=== PATIENT | female | born 1985 | race Caucasian/White ===

== ENCOUNTER → 2020-09-12 12:50 | Outpatient (BNVA) | payer OTHER, SELFPAY | PROVIDERS: PCP Nurse Practitioner Family; Visit Provider Physician Assistant | DX: K58.1 Irritable bowel syndrome with constipation (principal) | CPT/HCPCS: 99213 ==

== ENCOUNTER 2020-09-13 11:11 | Outpatient (REF) | payer OTHER, SELFPAY ==
[2020-09-13 14:24] LABS: Cholesterol 215 mg/dL; HDL Cholesterol 40 mg/dL; LDL Cholesterol Calculated 121 mg/dl; Triglycerides 272 mg/dL
== END 2020-09-13 11:12 | disposition home or self-care (01) ==
LOC: HO.HMGCLDS 11:11
PROVIDERS: PCP Nurse Practitioner Family; Visit Provider Nurse Practitioner Family
DX: E78.5 Hyperlipidemia, unspecified (principal)
CPT/HCPCS: 80061

== ENCOUNTER 2020-10-04 10:19 | Outpatient (REF) | payer OTHER, SELFPAY ==
[2020-10-04 11:41] LABS: HCG Quantitative 531 mIU/mL
[2020-10-04 11:47] LABS: Cholesterol 198 mg/dL; HDL Cholesterol 45 mg/dL; LDL Cholesterol Calculated 130 mg/dl; Triglycerides 115 mg/dL
== END 2020-10-04 10:20 | disposition home or self-care (01) ==
LOC: HO.HMGCLDS 10:19
PROVIDERS: PCP Nurse Practitioner Family; Visit Provider Nurse Practitioner Family
DX: E78.5 Hyperlipidemia, unspecified (principal); N92.6 Irregular menstruation, unspecified
CPT/HCPCS: 80061; 84702

== ENCOUNTER → 2020-10-10 07:44 | Outpatient (BNVA) | payer OTHER, SELFPAY | PROVIDERS: PCP Nurse Practitioner Family; Visit Provider Physician Assistant | DX: Z76.89 Persons encountering health services in other specified circumstances (principal) ==

== ENCOUNTER 2025-03-16 12:55 | Outpatient (REF) | payer BC, SELFPAY ==
--- NOTE | ~2025-03-16 | US_ITS ---
Procedure: Endovascular ablation of the right greater saphenous vein with VenaSeal HISTORY: Varicose veins INDICATIONS: Symptomatically varicose veins bilateral lower extremity. Symptoms include pain, swelling, PROCEDURE/FINDINGS: Informed consent was obtained following a discussion of the risks and benefits of the procedure with the patient. The patient was placed supine on the ultrasound procedure table. Preliminary ultrasound demonstrates dilated refluxing right greater saphenous vein. A site was marked on the right medial leg . The right leg was sterilely prepped and draped. Following the administration of 1% lidocaine for local anesthesia, the greater saphenous vein was accessed with a 21-gauge micropuncture needle under direct ultrasound guidance. The needle was exchanged for the transitional dilator over a 0.018 guidewire. A 0.035 guidewire was then advanced to the saphenofemoral junction. The VenaSeal sheath was then inserted over the wire and positioned 10 cm from the saphenofemoral junction. VenaSeal glue was then delivered along the length of the greater saphenous vein while retracting the catheter with compression at the saphenofemoral junction to prevent glue from traveling forward. The delivery device was removed and hemostasis was achieved with manual compression. Postprocedure ultrasound demonstrates successful occlusion of the treated veins with widely patent and compressible saphenofemoral junction. Patient tolerated the procedure well without immediate complication. US/US venaseal vein closure IMPRESSION: Successful VenaSeal ablation of the right greater saphenous vein. Follow-up ultrasound in 5-7 days as scheduled Electronically signed by: Manuel Mccabe MD 03/16/2025 03:45 PM EDT
--- OUTSIDE RECORDS SUMMARY | 2025-03-16 14:09 | XMS_ITS ---
Author Organization Beata Terrell MD Address [address] [place] [phone] Care Team Providers Care Online Producer Name Role Phone Velma Adams Primary Care Provider [phone] BEATA TERRELL MD Unavailable Unavailable Reason For Referral Reason Can we refer to [facility] - any provider for eval for fibroids and thick endometrial lining faxed Diagnosis 1 Leiomyoma of uterus, unspecified (D25.9) Referral Organization Beata Terrell MD Referring Provider First Name Velma Referring Provider Last Name Bryan Referring Provider Speciality Nurse Prac titioner Referred Provider Specialty Hand Flesher General Notes Asya ROSENBERG 02/15 04:09:27 PM >completed [facility] Referral form and faxed Referral Priority Routine REASON FOR VISIT results Encounters Encounter Location Date Provider Diagnosis Beata Terrell MD [address] [phone] 02/28/2025 Velma Adams Leiomyoma of uterus, unspecified D25.9 Assessments Encounter Date Diagnosis (ICD Code) Assessment Notes Treatment Notes Treatment Clinical Notes Section Notes 02/28/2025 Leiomyoma of uterus, unspecified (ICD-10 - D25.9) Plan Of Treatment Referrals Referral Date Details 03/01/2025 03/01/2025, Can we r efer to [facility] - any provider for eval for fibroids and thick endometrial lining faxed Next Appt Details Provider Name:Velma Joyae , 04/25/2025 08:30:00 AM, [address] [place] [address], [place] [address], [place], [place], [phone], Progress Notes * Eden CHARLESDOB:1985 ( 39 yo F)Acc No.[id number]:02/28/2025 Patient:Eden TRACY :1985???Age:39 Y???Sex:Female Address: [address] [facility] [place] [place] [address] Subjective: * Chief Complaints: * ???Results * Medical History:? * Surgical History:? * Hospitalization/Major Diagno stic Procedure:? * Medications:? Objective: * Vitals:? Past Vitals:* 12/07/2024 Temp:96.9F, HR:63/min, BP:12 2/72mm Hg, Wt:206lbs, BMI:31.32Index, Ht:68in, Oxygen sat %:98% * 07/22/2024 Temp:95.6F, HR:87/min, BP:11 8/68mm Hg, Wt:215.4lbs, BMI:32.75Index, Ht:5 ft 8 in, Oxygen sat %:98% * 06/23/2024 Temp:97.5F, HR:71/min, Wt:21 9lbs, BMI:33.30Index, Ht:5 ft 8 in, Oxygen sat %:98% * Physical Examination:? Assessment: * Assessment: 1.?Leiomyoma of uterus, unsp ecified - D25.9 (Primary)??? Plan: * Treatment: * Procedure Codes:? * true * Date:? Generated for Tiffany shay/Finn/eTjorjesmitting on:?03/16/2025 02:09 PM EDT Consultation Request Notes Referral Date Referring Provider Referred Provider Not es 03/01/2025 Velma Adams , Can we refer t o [facility] - any provider for eval for fibroids and thick endometrial lining faxed
--- OUTSIDE RECORDS SUMMARY | 2025-03-16 14:09 | XMS_ITS | Patient Health Record ---
Author Organization [facility] Address [address] [place] [phone] Care Team Providers Care Brass Bobbin Winder Name Role Phone Velma Adams Primary Care Provider BEATA TERRELL MD Unavailable Unavailable Beata Terrell Unavailable [phone] Allergies No Known Allergies Results Component Value Reference Range Notes CBC With Differential/Platel et-[id number] Reviewed date:12/08/2024 08:28:40 PM Interpretation: Performing Lab:[facility], [address] [place] [address], [place], Phone - [phone], Director - Blaise Notes/Report: WBC 8.6 3.4-10.8 x10E3/uL RBC 4.40 3.77-5.28 x10E6/uL Hemoglobin 13.8 11.1-15.9 g/dL Hematocrit 40.9 34.0-46.6 % MCV 93 79-97 fL MCH 31.4 26.6-33.0 pg MCHC 33.7 31.5-35.7 g/dL RDW 12.5 11.7-15.4 % Platelets 335 150-450 x10E3/uL Neutrophils 57 Not Estab. % Lymphs 30 Not Estab. % Monocytes 6 Not Estab. % Eos 6 Not Estab. % Basos 1 Not Estab. % Neutrophils (Absolute) 4.9 1.4-7.0 x10E3/uL Lymphs (Absolute) 2.5 0.7-3.1 x10E3/uL Monocytes(Absolute) 0.5 0.1-0.9 x10E3/uL Eos (Absolute) 0.5 0.0-0.4 x10E3/uL Baso (Absolute) 0.1 0.0-0.2 x10E3/uL Immature Granulocytes 0 Not Estab. % Immature Grans (Abs) 0.0 0.0-0.1 x10E3/uL Comp. Metabolic Panel (14)-3 [id number] Reviewed date:12/08/2024 08:28:40 PM Interpretation: Performing Lab:Leni Ponce, [address] [facility], Phone - [phone], Director - Blaise Notes/Report: Glucose 76 70-99 mg/dL BUN 11 6-20 mg/dL Creatinine 0.83 0.57-1.00 mg/dL eGFR 94 >59 mL/min/1.73 BUN/Creatinine Ratio 13 9-23 Sodium 138 134-144 mmol/L Potassium 4.7 3.5-5.2 mmol/L Chloride 105 96-106 mmol/L Carbon Dioxide, Total 22 20-29 mmol/L Calcium 9.0 8.7-10.2 mg/dL Protein, Total 6.9 6.0-8.5 g/dL Albumin 4.0 3.9-4.9 g/dL Globulin, Total 2.9 1.5-4.5 g/dL Bilirubin, Total 0.3 0.0-1.2 mg/dL Alkaline Phosphatase 48 44-121 IU/L AST (SGOT) 14 0-40 IU/L ALT (SGPT) 16 0-32 IU/L LP+Non-HDL Cholesterol-79746 5 Reviewed date:12/08/2024 08:28:40 PM Interpretation: Performing Lab:Leni Ponce, [address] [facility], Phone - [phone], Director - Blaise Notes/Report: Cholesterol, Total 183 100-199 mg/dL Triglycerides 109 0-149 mg/dL HDL Cholesterol 38 >39 mg/dL VLDL Cholesterol Bubba 20 5-40 mg/dL LDL Chol Calc (NIH) 125 0-99 mg/dL Non-HDL Cholesterol 145 0-129 mg/dL MR Pelvis W WO Reviewed date:02/28/2025 05:02:15 PM Interpretation: Performing Lab: Notes/Report: US Pelvic Transvaginal Reviewed date:10/13/2024 02:17:33 PM Interpretation: Performing Lab: Notes/Report: US Pelvic Transabdominal, US Pelvic Transvaginal Reason: Excessive and frequent menstruation with irregular cycle. COMPARISON: None TECHNIQUE: Transabdominal and transvaginal ultrasound with grayscale and color Doppler analysis. FINDINGS: UTERUS: Size: 8.6 x 4.3 x 5.4 cm, volume 102.2 cc. Endometrial thickness: 1.0 cm. Morphology: Possible arcuate configuration, although not definitive on 2D imaging. Normal echotexture. RIGHT OVARY: Size: 3.9 x 2.7 x 3.6 cm, volume 19.3 cc. Morphology: Normal echotexture. Dominant follicle measuring up to 2.8 cm. No pathologic cysts or mass. Normal color Doppler appearance. LEFT OVARY: Size: 3.4 x 2.7 x 2.4 cm, volume 11.4 cc. Morphology: Normal echotexture. No pathologic cysts or mass. Normal color Doppler appearance. ADNEXA: Normal. No adnexal masses or fluid collections. IMPRESSION: Normal ovaries. Possible arcuate uterine configuration. Otherwise unremarkable uterus. WSN: [id number] Ordering Physician: Velma Adams Dictated By: Amador Davalos MD US Pelvic Transabdominal, US Pelvic Transvaginal Reason: Excessive an d frequent menstruation with irregular cycle. COMPARISON: None TECHNIQUE: Transabdominal and transvaginal ultrasound with grayscale and color Doppler analysis. FINDINGS: UTERUS: Size: 8.6 x 4.3 x 5. 4 cm, volume 102.2 cc. Endometrial thicknes s: 1.0 cm. Morphology: Possible arcuate configuration, although not definitive on 2D imaging. Normal echotexture. RIGHT OVARY: Size: 3.9 x 2.7 x 3. 6 cm, volume 19.3 cc. Morphology: Normal echotexture. Dominant follicle measuring up to 2.8 cm. No pathologic cysts or mass. Normal color Doppler appearance. LEFT OVARY: Size: 3.4 x 2.7 x 2. 4 cm, volume 11.4 cc. Morphology: Normal echotexture. No pathologic cysts or mass. Normal color Doppler appearance. ADNEXA: Normal. No adnexal masses or fluid collections. IMPRESSION: Normal ovaries. Possible arcuate uterine configuration. Otherwise unremarkable uterus. WSN: [id number] Ordering Physician: Velma Adams US Pelvic Transabdominal Reviewed date:10/13/2024 02:17:33 PM Interpretation: Performing Lab: Notes/Report: US Pelvic Transabdominal, US Pelvic Transvaginal Reason: Excessive and frequent menstruation with irregular cycle. COMPARISON: None TECHNIQUE: Transabdominal and transvaginal ultrasound with grayscale and color Doppler analysis. FINDINGS: UTERUS: Size: 8.6 x 4.3 x 5.4 cm, volume 102.2 cc. Endometrial thickness: 1.0 cm. Morphology: Possible arcuate configuration, although not definitive on 2D imaging. Normal echotexture. RIGHT OVARY: Size: 3.9 x 2.7 x 3.6 cm, volume 19.3 cc. Morphology: Normal echotexture. Dominant follicle measuring up to 2.8 cm. No pathologic cysts or mass. Normal color Doppler appearance. LEFT OVARY: Size: 3.4 x 2.7 x 2.4 cm, volume 11.4 cc. Morphology: Normal echotexture. No pathologic cysts or mass. Normal color Doppler appearance. ADNEXA: Normal. No adnexal masses or fluid collections. IMPRESSION: Normal ovaries. Possible arcuate uterine configuration. Otherwise unremarkable uterus. WSN: [id number] Ordering Physician: Velma Adams Dictated By: Amador Davalos MD US Pelvic Transabdominal, US Pelvic Transvaginal Reason: Excessive an d frequent menstruation with irregular cycle. COMPARISON: None TECHNIQUE: Transabdominal and transvaginal ultrasound with grayscale and color Doppler analysis. FINDINGS: UTERUS: Size: 8.6 x 4.3 x 5. 4 cm, volume 102.2 cc. Endometrial thicknes s: 1.0 cm. Morphology: Possible arcuate configuration, although not definitive on 2D imaging. Normal echotexture. RIGHT OVARY: Size: 3.9 x 2.7 x 3. 6 cm, volume 19.3 cc. Morphology: Normal echotexture. Dominant follicle measuring up to 2.8 cm. No pathologic cysts or mass. Normal color Doppler appearance. LEFT OVARY: Size: 3.4 x 2.7 x 2. 4 cm, volume 11.4 cc. Morphology: Normal echotexture. No pathologic cysts or mass. Normal color Doppler appearance. ADNEXA: Normal. No adnexal masses or fluid collections. IMPRESSION: Normal ovaries. Possible arcuate uterine configuration. Otherwise unremarkable uterus. WSN: [id number] Ordering Physician: Velma Adams Vitamin [id number] Reviewed date:04/27/2024 03:22:23 PM Interpretation: Performing Lab:[facility], Phone - [phone], Director - Blaise Notes/Report: Vitamin B12 341 079-5983 pg/mL ZONK-Dzqmfrk-[id number] Reviewed date:04/27/2024 03:22:23 PM Interpretation: Performing Lab[facility], Phone - [phone], Director - Blaise Notes/Report: DHEA-Sulfate 79.4 57.3-279.2 ug/dL Testosterone-[id number] Reviewed date:04/27/2024 03:22:23 PM Interpretation: Performing Lab:[facility], Phone - [phone], Director - Blaise Notes/Report: Testosterone 16 8-60 ng/dL Luteinizing Hormone(LH)-0042 83 Reviewed date:04/27/2024 03:22:23 PM Interpretation: Performing Lab:[facility], Phone - [phone], - Blaise Notes/Report: LH 7.5 Adult Female Range Follicular phase 2.4 - 12.6 Ovulation phase 14.0 - 95.6 Luteal phase 1.0 - 11.4 Postmenopausal 7.7 - 58.5 FSH-[id number] Reviewed date:04/27/2024 03:22:23 PM Interpretation: Performing Lab:[facility], Phone - [phone], Director Stepan Welsh Notes/Report: FSH 3.1 Adult Female Range Follicular phase 3.5 - 12.5 Ovulation phase 4.7 - 21.5 Luteal phase 1.7 - 7.7 Postmenopausal 25.8 - 134.8 Progesterone-286851 Reviewed date:04/27/2024 03:22:23 PM Interpretation: Performing Lab[facility], Phone - [phone], Director Stepan Welsh Notes/Report: Progesterone 0.1 Follicular phase 0.1 - 0.9 Luteal phase 1.8 - 23.9 Ovulation phase 0.1 - 12.0 First trimester 11.0 - 44.3 Second trimester 25.4 - 83.3 Third trimester 58.7 - 214.0 Postmenopausal 0.0 - 0.1 Insulin-[id number] Reviewed date:04/27/2024 03:22:23 PM Interpretation: Performing Lab:[facility] [place], [address] [facility], [place], Phone - [phone], Director - Blaise Notes/Report: Insulin 15.3 2.6-24.9 uIU/mL Prolactin-549672 Reviewed date:04/27/2024 03:22:23 PM Interpretation: Performing Lab:[facility] [place], [address] [place] [address], [place], Phone - [phone], Director - Blaise Notes/Report: Prolactin 11.6 4.8-33.4 ng/mL Estrogens, Total-115444 Reviewed date:04/27/2024 03:22:23 PM Interpretation: Performing Lab:[facility] [place], [address] [place] [address], [place], Phone - [phone], Director - Blaise Notes/Report: Estrogens, Total 421 Prepubertal < 40 Female Cycle: 1-10 Days 16 - 328 11-20 Days 34 - 501 21-30 Days 48 - 350 Post-Menopausal 40 - 244 CBC With Differential/Platel et-[id number] Reviewed date:04/27/2024 03:22:23 PM Interpretation: Performing Lab:[facility] [place], [address] [facility], [place], Phone - [phone], Director - Blaise Notes/Report: WBC 9.4 3.4-10.8 x10E3/uL RBC 4.66 3.77-5.28 x10E6/uL Hemoglobin 14.5 11.1-15.9 g/dL Hematocrit 44.1 34.0-46.6 % MCV 95 79-97 fL MCH 31.1 26.6-33.0 pg MCHC 32.9 31.5-35.7 g/dL RDW 12.9 11.7-15.4 % Platelets 305 150-450 x10E3/uL Neutrophils 55 Not Estab. % Lymphs 33 Not Estab. % Monocytes 6 Not Estab. % Eos 5 Not Estab. % Basos 1 Not Estab. % Neutrophils (Absolute) 5.2 1.4-7.0 x10E3/uL Lymphs (Absolute) 3.1 0.7-3.1 x10E3/uL Monocytes(Absolute) 0.5 0.1-0.9 x10E3/uL Eos (Absolute) 0.5 0.0-0.4 x10E3/uL Baso (Absolute) 0.1 0.0-0.2 x10E3/uL Immature Granulocytes 0 Not Estab. % Immature Grans (Abs) 0.0 0.0-0.1 x10E3/uL Measles/Mumps/Rubella Immuni ty-[id number] Reviewed date:04/27/2024 03:22:23 PM Interpretation: Performing [facility], [address] [place] [address], Phone - [phone], Director - [facility] Notes/Report: Rubella Antibodies, IgG 1.80 Immune > 0.99 index Non-immune <0.90 Equivocal 0.90 - 0.99 Immune >0.99 Measles Antibodies, IgG <13.5 Immune > 16.4 AU/mL Negative <13.5 Equivocal 13.5 - 16.4 Positive >16.4 Presence of antibodies to Rubeola is presumptive evidence of immunity except when acute infection is suspected. Mumps Abs, IgG <9.0 Immune >10.9 AU/mL Negative <9.0 Equivocal 9.0 - 10.9 Positive >10.9 A positive result generally indicates past exposure to Mumps virus or previous vaccination. Vitamin D, 47-Fuyzfox-[id number] Reviewed date:04/27/2024 03:22:23 PM Interpretation: Performing Lab:[facility], [address] [place] [address], [place], Phone - [phone], Director - [facility] Notes/Report: Vitamin D, 25-Hydroxy 19.0 30.0-100.0 ng/mL Vitamin D deficiency has been defined by the [place] of [employer] and an Endocrine Society practice guideline as a level of serum 25-OH vitamin D less than 20 ng/mL (1,2). The Endocrine Society went on to further define vitamin D insufficiency as a level between 21 and 29 ng/mL (2). 1. IOM ([place] of [employer]). 2010. Dietary reference intakes for calcium and D. [place]: The National Academies Press. 2. Ritchie MF, Jimbo NC, Kathleen SAINI, et al. Evaluation, treatment, and prevention of vitamin D deficiency: an Endocrine Society clinical practice guideline. JCEM. 2010; 96(7):1911-30. HCV Antibody RFX to Quant PC [id number] Reviewed date:04/27/2024 03:22:23 PM Interpretation: Performing Lab:[facility], [address], Phone - [phone], Director - Blaise Notes/Report: HCV Ab Non Reactive Non Reactive Interpretation: Not infected with HCV unless early or acute infection is suspected (which may be delayed in an immunocompromised individual), or other evidence exists to indicate HCV infection. Comp. Metabolic Panel (14)-3 [id number] Reviewed date:04/27/2024 03:22:23 PM Interpretation: Performing Lab:[facility], [address] [facility], Phone - [phone], Director - [place]ise Notes/Report: Glucose 83 70-99 mg/dL BUN 9 6-20 mg/dL Creatinine 0.73 0.57-1.00 mg/dL eGFR 109 >59 mL/min/1.73 BUN/Creatinine Ratio 12 9-23 Sodium 138 134-144 mmol/L Potassium 4.0 3.5-5.2 mmol/L Chloride 104 96-106 mmol/L Carbon Dioxide, Total 22 20-29 mmol/L Calcium 9.5 8.7-10.2 mg/dL Protein, Total 7.0 6.0-8.5 g/dL Albumin 4.2 3.9-4.9 g/dL Globulin, Total 2.8 1.5-4.5 g/dL A/G Ratio 1.5 1.2-2.2 Bilirubin, Total 0.3 0.0-1.2 mg/dL Alkaline Phosphatase 52 44-121 IU/L AST (SGOT) 18 0-40 IU/L ALT (SGPT) 23 0-32 IU/L LP+Non-HDL Cholesterol-93442 5 Reviewed date:04/27/2024 03:22:23 PM Interpretation: Performing Lab:[facility], [address] [facility], [place], Phone - [phone], Director - Blaise Notes/Report: Cholesterol, Total 215 100-199 mg/dL Triglycerides 163 0-149 mg/dL HDL Cholesterol 38 >39 mg/dL VLDL Cholesterol Bubba 30 5-40 mg/dL LDL Chol Calc (NIH) 147 0-99 mg/dL Non-HDL Cholesterol 177 0-129 mg/dL UA/M w/rflx Culture, Routine -[id number] Reviewed date:04/27/2024 03:22:24 PM Interpretation: Performing Lab:[facility] [place], Phone - [phone], Director - Blaise Notes/Report: Specific [place] 1.018 1.005-1.030 pH 5.5 5.0-7.5 Urine-Color Yellow Yellow Appearance Clear Clear WBC Esterase Negative Negative Protein Negative Negative/Trace Glucose Negative Negative Ketones Negative Negative Occult Blood Negative Negative Bilirubin Negative Negative Urobilinogen,Semi-Qn 0.2 0.2-1.0 mg/dL Nitrite, Urine Negative Negative Microscopic Examination Micr oscopic follows if indicated. Microscopic Examination See below: Micr oscopic was indicated and was performed. Urinalysis Reflex This speci men will not reflex to a Urine Culture. WBC None seen 0 - 5 /hpf RBC None seen 0 - 2 /hpf Epithelial Cells (non renal) 0-10 0 - 10 /hpf Casts None seen None seen /lpf Bacteria None seen None seen/Few TSH reflex to [id number] Reviewed date:04/27/2024 03:22:24 PM Interpretation: Performing Lab:[facility] [place], Phone - [phone], Director - Blaise Notes/Report: TSH 1.300 0.450-4.500 uIU/mL PDF Report Reviewed date:04/27/2024 03:22:24 PM Interpretation: Performing Lab:[facility] [place], Phone - [phone], Director - Blaise Notes/Report: Respiratory Panel w/ SARS-Co [id number] Reviewed date:06/28/2024 10:57:23 AM Interpretation: Performing Lab:[facility] [place] [address] [place] [address], Phone - [phone], Director - Blaise Notes/Report: Clinical Information:SRC: Adenovirus Not Detected Not Detected Coronavirus HKU1 Not Detected Not Detected Coronavirus NL63 Not Detected Not Detected Coronavirus 229E Not Detected Not Detected Coronavirus OC43 Not Detected Not Detected SARS-CoV-2 Not Detected Not Detected Human Metapneumovirus Not Detected Not Detected Human Rhinovirus/Enterovirus Not Detected Not Detected Influenza A Not Detected Not Detected Influenza A/H1 TNP Test not perf ormed Influenza A/H1-2009 TNP Test not performed Influenza A/H3 TNP Test not perf ormed Influenza B Not Detected Not Detected Parainfluenza 1 Not Detected Not Detected Parainfluenza 2 Not Detected Not Detected Parainfluenza 3 Not Detected Not Detected Parainfluenza 4 Detected Not Detected Respiratory Syncytial Virus Detected Not Detected Bordetella parapertussis Not Detected Not Detected Bordetella pertussis Not Detected Not Detected Chlamydophila pneumoniae Not Detected Not Detected Mycoplasma pneumoniae Not Detected Not Detected PDF Report Reviewed date:06/28/2024 10:57:23 AM Interpretation: Performing Lab:[facility] [place], [facility], Phone - [phone], Director - [facility] Notes/Report: Clinical Information:SRC: Ultrasound: Transvaginal Pel colby Sono Reviewed date:10/13/2024 03:30:22 PM Interpretation: Performing Lab: Notes/Report: Anti-Mullerian Hormone (AMH) -[id number] Reviewed date:04/27/2024 03:22:24 PM Interpretation: Performing Lab:[facility], [address] [place] [address], Phone - [phone], Director - [place] Notes/Report: Anti-Mullerian Hormone (AMH) 8.50 For assays employing antibodies, the possibility exists for interference by heterophile antibodies in the samples.1 1.Nilay Tavarez. Interferences in Immunoassays - still a threat. Clin. Chem. 2000; 46: 8465-4185. This test was developed and its performance characteristics determined by [employer]. It has not been cleared or approved by the Food and Drug Administration. Reference Range: Females 36 - 40y: 0.42 - 8.34 Median 1.69 AMH concentrations of >= 1.06 ng/mL is correlated with a better response to ovarian stimulation, produced more retrievable oocytes and higher odds of live according to Ceciliaer et al. Fertility and Sterility. 2010: 94:7818-7885. The current AMH test method correlates with the study method with a slope of 0.94. Females at risk of ovarian hyperstimulation syndrome or polycystic ovarian syndrome (PCOS) may exhibit elevated serum AMH concentrations. AMH levels from PCOS patients may be 2 to 5 fold higher than age-appropriate reference interval values. Granulosa cell tumors of the ovary may secrete AMH along with other tumor markers. Elevated AMH is not specific for malignancy, and the assay should not be used exclusively to diagnose or exclude an AMH-secreting ovarian tumor. Reason For Referral Reason faxed Diagnosis 1 Body mass index [BMI ] 33.0-33.9, adult (Z68.33) Referral Organization [facility] Referring Provider First Name Velma Referring Provider Last Name Bryan Referring Provider Speciality Nurse Mojgan salinas Referred Provider Florence Mendoza Referred Provider Specialty Dietitian General Notes Asya ROSENBERG 02/2024 08:43:02 AM >[facility] 04/20/2024 02:45:03 PM > they will book directly with Patient Referral Priority Routine Reason faxed Diagnosis 1 Asymptomatic varicos e veins of bilateral lower extremities (I83.93) Referral Organization [facility] Referring Provider First Name Velma Referring Provider Last Name Bryan Referring Provider Speciality Nurse Mojgan salinas Referred Provider Willard Fine Referred Provider Specialty Vascular Frances last General Notes Asya ROSENBERG 02/2024 08:44:53 AM >[facility] 04/20/2024 02:45:33 PM >ASMAshanti ARIZA R 04/20/2024 02:45:03 PM > they will book directly with Patient, [facility] 04/22/2024 04:57:33 PM >Ins referral completed Referral Priority Routine Referral Appointment Date 09/21/2024 Reason Can we refer to Francia KUGYN - any provider for eval for fibroids and thick endometrial lining faxed Diagnosis 1 Leiomyoma of uterus, unspecified (D25.9) Referral Organization [facility] Referring Provider First Name Velma Referring Provider Last Name Bryan Referring Provider Speciality Nurse Mojgan salinas Referred Provider Specialty Polymerization Engineer General Notes Asya ROSENBERG 02/15 04:09:27 PM >completed [facility] Referral form and faxed Referral Priority Routine Medications Medication SIG (Take, Route, Fr equency, Duration) Notes Start Date End Date Status Zepbound 5 MG/0.5ML 0.5 mL Subcutaneous weekly for 30 days 03/14/2025 05/13/2025 Active Lactulose 10 GM/15ML 15 mL as needed Ora lly Once a day for 7 days 03/14/2025 03/23/2025 Active Immunizations Vaccine Route Administration Date Status Comme nts [id number] Vaccine Unknown 07/26/2021 Administere d [id number] Vaccine Unknown 08/23/2021 Administere d *Tdap Unknown 03/29/2021 Administered Influenza-Afluria (IIV4) Unknown 11/22/2020 Administere d Influenza-Afluria (IIV4) Unknown 10/07/2021 Administere d Social History Tobacco Use: Social History Observation Description Date Details (start date - stop date) Current Smoker NA - NA Tobacco Use/Smoking Question Answer Notes Are you a current smoker when did you start smoking 11/17/2008 How often do you smoke cigarettes? every day How many cigarettes a day do you smoke? 6-10 How soon after you wake up d o you smoke your first cigarette? after 60 minutes Are you interested in quitting? Thinking about q uitting AUDIT-C (Standard) Question Answer Notes Did you have a drink contain ing alcohol in the past year? Yes How often did you have six o r more drinks on one occasion in the past year? Less than monthly (1 point) How many drinks did you have on a typical day when you were drinking in the past year? 1 or 2 drinks (0 point) How often did you have a dri nk containing alcohol in the past year? Monthly or less (1 point) Points 2 Interpretation Negative Tobacco Control (Standard) Question Answer Notes Tobacco use: Current smoker How often do you smoke cigarettes? Every day How many cigarettes a day do you smoke? 6-10 Problems Problem Type SNOMED Code ICD Code Onset Dates Problem Status W/U Status Risk Notes Problem Vitamin D deficiency (58946065) Vitamin D deficiency, unspecified (E55.9) Active confirmed Problem Mixed hyperlipidemia (135711664) Mixed hyperlipidemia (E78.2) Active confirmed Problem Tobacco user (740271847) Nicotine dependence, cigarettes, uncomplicated (F17.210) Active confirmed Problem Major depression, single episode, in complete remission (67789718) Major depressive disorder, single episode, in full remission (F32.5) Active confirmed Problem Generalized anxiety disorder (14972442) Generalized anxiety disorder (F41.1) Active confirmed Problem Cramp in lower leg associated with rest (056295628) Sleep related leg cramps (G47.62) Active confirmed Problem Endometriosis of uterus (34320716) Endometriosis of uterus (N80.0) Active confirmed Problem Intermenstrual bleeding - irregular (21143462) Excessive and frequent menstruation with irregular cycle (N92.1) Active confirmed Problem Paresthesia (finding) (86084674) Paresthesia of skin (R20.2) Active confirmed Problem Body mass index 30.00 to 34.99 (730477899143401) Body mass index [BMI] 33.0-33.9, adult (Z68.33) Active confirmed Vital Signs Heart Rate 74 /min 03/14/2025 Temperature 97.0 degrees Fahrenheit 03/14/2025 Blood pressure diastolic 66 mm Hg 03/14/2025 Oximetry 99 % 03/14/2025 Height 68 in 03/14/2025 Blood pressure systolic 118 mm Hg 03/14/2025 Weight 190 lbs 03/14/2025 BMI 28.89 kg/m2 03/14/2025 Encounters Encounter Location Date Provider Diagnosis Be[facility] Terrell MD [address] [id number] 03/14/2025 Velma Adams Excessive and freque nt menstruation with irregular cycle N92.1 ; Major depressive disorder, single episode, in full remission F32.5 ; Generalized anxiety disorder F41.1 ; Endometriosis of uterus N80.0 ; Mixed hyperlipidemia E78.2 ; Body mass index [BMI] 28.0-28.9, adult Z68.28 and Drug induced constipation K59.03 Beata Terrell MD [address] [id number] 04/19/2024 Velma Adams Encounter for genera l adult medical examination without abnormal findings Z00.00 ; Major depressive disorder, single episode, in full remission F32.5 ; Generalized anxiety disorder F41.1 ; Nicotine dependence, cigarettes, uncomplicated F17.210 ; Mixed hyperlipidemia E78.2 ; Asymptomatic varicose veins of bilateral lower extremities I83.93 ; Excessive and frequent menstruation with irregular cycle N92.1 ; Other dietary vitamin B12 deficiency anemia D51.3 ; Body mass index [BMI] 33.0-33.9, adult Z68.33 ; Vitamin D deficiency, unspecified E55.9 ; Encounter for screening for cardiovascular disorders Z13.6 ; Encounter for immunization Z23 ; Encounter for antibody response examination Z01.84 ; Encounter for screening for other viral diseases Z11.59 ; Encounter for screening examination for mental health and behavioral disorders, unspecified Z13.30 and Encounter for screening for malignant neoplasm of cervix Z12.4 Beata Terrell MD [address] [id number] 05/25/2024 Beata Terrell MD [address] [id number] 06/23/2024 Velma Adams Acute upper respirat ory infection, unspecified J06.9 and Postnasal drip R09.82 Beata Terrell MD [address] [id number] 07/22/2024 Velmashad Joyae Body mass index [BMI ] 33.0-33.9, adult Z68.33 ; Excessive and frequent menstruation with irregular cycle N92.1 ; Nicotine dependence, cigarettes, uncomplicated F17.210 ; Major depressive disorder, single episode, in full remission F32.5 and Generalized anxiety disorder F41.1 Beata Terrell MD [address] [id number] 12/07/2024 Velma Adams Excessive and freque nt menstruation with irregular cycle N92.1 ; Major depressive disorder, single episode, in full remission F32.5 ; Generalized anxiety disorder F41.1 ; Endometriosis of uterus N80.0 and Mixed hyperlipidemia E78.2 Beata Terrell MD [address] [id number] 04/27/2024 Velma Adams Vitamin D deficiency , unspecified E55.9 and Body mass index [BMI] 33.0-33.9, adult Z68.33 Beata Terrell MD [address] [id number] 05/06/2024 Velma Joyae Beata Terrell MD [address] [id number] 06/10/2024 Velma Adams Body mass index [BMI ] 33.0-33.9, adult Z68.33 Beata Terrell MD [address] [id number] 06/23/2024 Velma Joyae Beata Terrell MD [address] [id number] 06/28/2024 Velma Joyae Beata Terrell MD [address] [id number] 10/11/2024 Velma Adams Excessive and freque nt menstruation with irregular cycle N92.1 Beata Terrell MD [address] [id number] 10/13/2024 Velma Adamssamanta Terrell MD [address] [id number] 11/22/2024 Velma Adams Beata Terrell MD [address] [id number] 12/08/2024 Velma Adams Beata Terrell MD [address] [id number] 02/28/2025 Velma Adams Leiomyoma of uterus, unspecified D25.9 Beata Terrell MD [address] [id number] 03/15/2025 Velma Bryan Terrell MD [address] [id number] 04/08/2024 Velma Adams Beata Terrell MD [address] [id number] 05/07/2024 Velma Adams Beata Terrell MD [address] [id number] 05/19/2024 Velma Adams Beata Terrell MD [address] [id number] 05/19/2024 Velma Adamssamanta Terrell MD [address] [id number] 06/21/2024 Velma Adams Body mass index [BMI ] 33.0-33.9, adult Z68.33 Beata Terrell MD [address] [id number] 06/21/2024 Velma Adamssamanta Terrell MD [address] [id number] 06/21/2024 Velma Adams Beata Terrell MD [address] [id number] 07/07/2024 Velma Adams Body mass index [BMI ] 33.0-33.9, adult Z68.33 Beata Terrell MD [address] [id number] 08/02/2024 Velma Adamssamanta Terrell MD [address] [id number] 08/03/2024 Velma Adams Acute maxillary sinusitis, unspecified J01.00 Beata Terrell MD [address] [id number] 08/04/2024 Velma Adams Beata Terrell MD [address] [id number] 08/23/2024 Velma Adams Body mass index [BMI ] 33.0-33.9, adult Z68.33 Beata Terrell MD [address] [id number] 09/23/2024 Velma Adams Body mass index [BMI ] 33.0-33.9, adult Z68.33 Beata Terrell MD [address] [id number] 09/23/2024 Velma Adams Beata Terrell MD [address] [id number] 12/09/2024 Velma Adams Beata Terrell MD [address] [id number] 02/01/2025 Velma Adams Assessments Encounter Date Diagnosis (ICD Code) Assessment Notes Treatment Notes Treatment Clinical Notes Section Notes 04/27/2024 Vitamin D deficiency, unspecified (ICD-10 - E55.9) 04/27/2024 Body mass index [BMI] 33.0-33.9, adult (ICD-10 - Z68.33) 06/10/2024 Body mass index [BMI] 33.0-33.9, adult (ICD-10 - Z68.33) 06/21/2024 Body mass index [BMI] 33.0-33.9, adult (ICD-10 - Z68.33) 06/23/2024 Acute upper respiratory infection, unspecified (ICD-10 - J06.9) Suspect patient may have an underlying acute respiratory infection. Completed an in office respiratory swab and patient to be notified of results once available. Encouraged patient to begin taking Zyrtec daily to assist with overall nasal congestion. Patient to follow-up with any new or worsening concerns will wait for respiratory panel results 06/23/2024 Postnasal drip (ICD-10 - R09.82) Patient to begin azelastine nasal spray as well as Zyrtec daily to assist with nasal congestion and postnasal drip symptoms. Patient to also gargle with warm salt water to assist with any sore throat symptoms, although I do suspect her throat irritation is related to postnasal drip. 07/07/2024 Body mass index [BMI] 33.0-33.9, adult (ICD-10 - Z68.33) 07/22/2024 Excessive and frequent menstruation with irregular cycle (ICD-10 - N92.1) Discussed with patient her irregular menstrual cycles that continue to be between 4 to 6 weeks. Reviewed recent lab work which did not reveal any hormone imbalances but given her menstrual cycle changes and previous AMA level of greater than 8, I do suspect that there may be an underlying PCOS diagnosis. Given patient's abdominal bloating with menstrual cycle irregularities, patient would benefit from a transvaginal pelvic ultrasound. Patient also has been trying to conceive for greater than 1 year without any success and would like to evaluate this further and determine if there is an additional cause for patient's infertility concerns as well as presenting symptoms. 07/22/2024 Body mass index [BMI] 33.0-33.9, adult (ICD-10 - Z68.33) Discussed with patient that weight loss with Wegovy can be seen instantly while other times it does take months to see consistent weight loss. Would like patient to continue adjusting her diet, increasing her exercise, and taking Wegovy weekly to assist with lowering her BMI and reaching her weight loss goals. Will increase patient's Wegovy to 1 mg and patient aware to follow-up when she is due for the next dose next month. 08/03/2024 Acute maxillary sinusitis, unspecified (ICD-10 - J01.00) 08/23/2024 Body mass index [BMI] 33.0-33.9, adult (ICD-10 - Z68.33) 09/23/2024 Body mass index [BMI] 33.0-33.9, adult (ICD-10 - Z68.33) 10/11/2024 Excessive and frequent menstruation with irregular cycle (ICD-10 - N92.1) 12/07/2024 Major depressive disorder, single episode, in full remission (ICD-10 - F32.5) Stable and patient feels her mental health is well-controlled at this time. 12/07/2024 Excessive and frequent menstruation with irregular cycle (ICD-10 - N92.1) Patient continues to track her cycles and does have irregular menstrual cycles that continue to be between 4 to 6 weeks. Patient's previous AMA level was noted to be greater than 8, and reviewed that I do suspect that there may be an underlying PCOS diagnosis. Patient also continues to have abdominal bloating, although slightly improved since last visit. Her transvaginal pelvic ultrasound was without significant findings. Given patient's continued irregular menstrual cycles as well as abdominal bloating and infertility issues, would like to obtain a pelvic MRI for underlying concerns of endometriosis. Discussed with patient that polycystic ovarian syndrome and endometriosis can be seen together and given her fertlity concerns would like her evaluated further. Patient agrees with this plan as she would like to have some further answers as to the causes for her infertility issues as well as irregular menstrual cycles. Discussed with patient that endometriosis is often missed on ultrasound and MRI and if there are no significant findings on her pelvic MRI, patient would benefit from a referral to the endometriosis specialist in [place] and patient agreeable to move forward with this referral should there not be any significant findings on her pelvic MRI 02/28/2025 Leiomyoma of uterus, unspecified (ICD-10 - D25.9) 03/14/2025 Major depressive disorder, single episode, in full remission (ICD-10 - F32.5) Stable and patient feels her mental health is well-controlled at this time. 03/14/2025 Excessive and frequent menstruation with irregular cycle (ICD-10 - N92.1) Patient continues to track her cycles and does states she is continuing to have a regular menstrual cycles that are between every 4 to 6 weeks. Reviewed with patient her previous AMA level which was noted to be greater than 8 which does reveal high suspicion for PCOS diagnosis. Patient also underwent a transvaginal ultrasound and MRI with findings of a thicker endometrial lining and endometrial enhancement. Due to this patient was referred to gynecology for further evaluation and potential biopsy but patient states she has not heard from [facility]. Provided patient with this contact information as patient would benefit from consultation and further plan for these findings 04/19/2024 Major depressive disorder, single episode, in full remission (ICD-10 - F32.5) Stable and pt has noted improved mental health since last visit 04/19/2024 Encounter for general adult medical examination without abnormal findings (ICD-10 - Z00.00) General healthcare up-to-date. Will obtain updated routine labs.Plan will be for annual in 1 year 04/19/2024 Generalized anxiety disorder (ICD-10 - F41.1) Stable at present time and pt states her anxiety has improved since last visit 03/14/2025 Generalized anxiety disorder (ICD-10 - F41.1) Stable at present time and patient to remain on current medication regimen as well as working on coping strategies to further improve her mental health and anxiety 12/07/2024 Generalized anxiety disorder (ICD-10 - F41.1) Blood present time and patient to continue on current medication regimen and continue her on coping strategies to further improve her mental health and anxiety 07/22/2024 Nicotine dependence, cigarettes, uncomplicated (ICD-10 - F17.210) Counseled on smoking cessation and patient states she is trying to decrease her cigarette use and she is aware that she can restart nicotine patches or reach out to the office should she need any further assistance with smoking cessation 07/22/2024 Major depressive disorder, single episode, in full remission (ICD-10 - F32.5) Stable and pt has noted improved mental health since last visit 12/07/2024 Endometriosis of uterus (ICD-10 - N80.0) 03/14/2025 Endometriosis of uterus (ICD-10 - N80.0) Spent time discussing patient's elevated AMH level as well as irregular menstrual cycles and recent MRI findings of endometrial enhancements and mild endometrial hyperplasia. Discussed with patient that given those findings as well as her abdominal bloating, she may have an underlying diagnosis of endometriosis. She is pending an appointment with [facility] for further evaluation. Discussed with patient that if [facility] [employer] [facility] is not able to assist in any further diagnosis or management, could consider referral to an endometriosis specialist either in [place] or [place] 04/19/2024 Nicotine dependence, cigarettes, uncomplicated (ICD-10 - F17.210) Pt reports she has not been consistent with using the nicotine patch but has decreased her amount. Pt encouraged to return to using her previously provided Nicotine Patches to assist with smoking cessation 04/19/2024 Mixed hyperlipidemia (ICD-10 - E78.2) Plan will be to recheck labs to ensure improvement in her lipids given her diet and lifestyle adjustments. If there is no improvement, pt would benefit from completing a calcium scoring test for further evaluation to assess current CAD risk 03/14/2025 Mixed hyperlipidemia (ICD-10 - E78.2) Patient with previous findings of elevated LDL levels of 140s. Patient continues to work on weight loss and has lost nearly 30 pounds over the past year. Will obtain an updated lipid panel to reassess LDL level. If LDL level has not improved patient would benefit from completing a calcium scoring test for further evaluation to assess current cardiovascular risk 07/22/2024 Generalized anxiety disorder (ICD-10 - F41.1) Stable at present time and pt states her anxiety has improved since last visit 12/07/2024 Mixed hyperlipidemia (ICD-10 - E78.2) Patient with previous findings of elevated LDL levels of 140s. Patient has lost 20 pounds since April and will obtain an updated lipid panel to reassess. If LDL level has not improved patient would benefit from completing a calcium scoring test for further evaluation to assess current cardiovascular risk 04/19/2024 Asymptomatic varicose veins of bilateral lower extremities (ICD-10 - I83.93) Patient with underlying concerns of multiple varicosities to both lower extremities. Patient denies any pain to her legs but is concerned as her varicose veins are growing in size and cosmetically, she would like to have these areas addressed. Referral to endovascular surgeons made at this time for consult and to discuss further interventions 03/14/2025 Body mass index [BMI] 28.0-28.9, adult (ICD-10 - Z68.28) Patient continues to work on weight loss and lowering her BMI with diet, exercise, and Wegovy use. Patient states she has had increased episodes of constipation and indigestion since being on the maximum dose of Wegovy. She states that this is becoming intolerable. Due to these negative side effects would like patient to switch to Zepbound to see if this can lessen the side effects of constipation and indigestion. Patient is agreeable to switch as the side effects are becoming unbearable. Patient aware that if she is not approved for Zepbound will return back to Wegovy and will continue on a bowel regimen daily to further improve her constipation 04/19/2024 Excessive and frequent menstruation with irregular cycle (ICD-10 - N92.1) Discussed with patient her irregular menstrual cycles that are now anywhere between 4 to 6 weeks, which is a change for her. Would like to obtain levels as well as assess for underlying polycystic ovarian syndrome. If there is significant findings in lab work, patient may benefit from beginning treatment, such as COCs, to help regulate her cycles 03/14/2025 Drug induced constipation (ICD-10 - K59.03) Patient shares much concern of abdominal discomfort, bloating, and constipation. She states that her constipation is worsening despite increasing her water and fiber intake. Did provide patient with the recipe for power pudding and will also add lactulose to further assist in managing her bowels. Patient aware that once her bowel movements become regular, she can begin MiraLAX daily as well as continue with 2 tablespoons of the pudding daily to further improve her constipation. Patient aware to follow-up should she have any new or worsening symptoms of concern or if she is not able to have a bowel movement with the use of these modalities in the next 2 to 3 days 04/19/2024 Other dietary vitamin B12 deficiency anemia (ICD-10 - D51.3) Pt with previous findings of low B2 levels. Will obtain an updated B12 level at this time 04/19/2024 Body mass index [BMI] 33.0-33.9, adult (ICD-10 - Z68.33) Patient continues to struggle with weight gain and inability to lose weight despite changing her lifestyle and diet as well as increasing her exercise. Patient states she has been scared to try phentermine and despite being prescribed this medication, she did not begin this treatment. Pt agreeable to meet with a wire preparation machine tender for additional support. Also, given patient's irregular menstrual cycles as well as her inability to lose weight, will obtain labs to assess for underlying hormone imbalances as well as polycystic ovarian syndrome 04/19/2024 Vitamin D deficiency, unspecified (ICD-10 - E55.9) Will check level to verify that there is no deficiency 04/19/2024 Encounter for screening for cardiovascular disorders (ICD-10 - Z13.6) Blood pressure stable. Will check for comorbidity of hyperlipidemia and hyperglycemia to further assess risk 04/19/2024 Encounter for immunization (ICD-10 - Z23) Vaccines up-to-date 04/19/2024 Encounter for antibody response examination (ICD-10 - Z01.84) Will obtain an MMR titer 04/19/2024 Encounter for screening for other viral diseases (ICD-10 - Z11.59) Will screen for hepatitis C as per general recommendation 04/19/2024 Encounter for screening examination for mental health and behavioral disorders, unspecified (ICD-10 - Z13.30) PHQ score reviewed and no further interventions warranted at this time 04/19/2024 Encounter for screening for malignant neoplasm of cervix (ICD-10 - Z12.4) Pt is up to date with her pap smears, and she should continue to follow up for [employer] as scheduled 04/19/2024 Other 04/08/2024 Other checked masspa t, no previously filled meds Plan Of Treatment Pending Test Test Name Order Date 25OH VITAMIN D 12/05/2022 COMPLETE BLOOD COUNT 12/05/2022 COMPREHENSIVE METABOLIC PANEL 12/05/2022 FERRITIN 12/05/2022 HEMOGLOBIN A1C 12/05/2022 LIPID PANEL 12/05/2022 TSH WITH REFLEX TO FT4 12/05/2022 VITAMIN B12 12/05/2022 Next Appt Details Provider Name:Velma Adams , 04/25/2025 08:30:00 AM, [address] [place] [address], [address], [place], [place], [id number], Insurance Providers Payer Name Payer Address Payer Phone Subscriber Number Group Number Insured Name Patient Relationship to Insured Coverage Start Date Coverage End Date [facility] [id number] [place] [address] [id number] Eden Charles Self - patient is the insured Medical (General) History Medical History History ICD Code HPV - colposcopy (2010) - normal paps si nce procedure HSV Surgical History Surgery Date(Month/Year) Leep procedure LP (for severe headache) Migraines (as a teenager) Hospitalization History Reason Date(Month/Year)
--- OUTSIDE RECORDS SUMMARY | 2025-03-16 14:10 | XMS_ITS ---
Author Organization [facility] Address [address] [phone] Care Team Providers Care Shuttle Fitting Supervisor Name Role Phone AdamsTamVelma Primary Care Provider BEATA TERRELL MD Unavailable Unavailable Allergies No Known Allergies REASON FOR VISIT 3m f/u Weight Medications Medication SIG (Take, Route, Fr equency, Duration) Notes Start Date End Date Status Zepbound 5 MG/0.5ML 0.5 mL Subcutaneous weekly for 30 days 03/14/2025 05/13/2025 Active Lactulose 10 GM/15ML 15 mL as needed Ora lly Once a day for 7 days 03/14/2025 03/23/2025 Active Social History Tobacco Use: Social History Observation [...] cigarettes a day do you smoke? 6-10 Vital Signs Temperature 97.0 degrees Fahrenheit 03/14/20 25 Heart Rate 74 /min 03/14/2025 Blood pressure systolic 118 mm Hg 03/14/20 25 Blood pressure diastolic 66 mm Hg 025 Weight 190 lbs 03/14/2025 BMI 28.89 kg/m2 03/14/2025 Height 68 in 03/14/2025 Oximetry 99 % 03/14/2025 Encounters Encounter Location Date Provider Diagnosis Beata Terrell MD [address] [phone] 03/14/2025 Velma Adams Excessive and freque nt menstruation with irregular cycle N92.1 ; Major depressive disorder, single episode, in full remission F32.5 ; Generalized anxiety disorder F41.1 ; Endometriosis of uterus N80.0 ; Mixed hyperlipidemia E78.2 ; Body mass index [BMI] 28.0-28.9, adult Z68.28 and Drug induced constipation K59.03 Assessments Encounter Date Diagnosis (ICD Code) Assessment Notes Treatment Notes Treatment Clinical Notes Section Notes 03/14/2025 Excessive and frequent menstruation with irregular [...] patient states she has not heard from [facility]. Provided patient with this contact information as patient would benefit from consultation and further plan for these findings 03/14/2025 Major depressive disorder, single episode, in full remission (ICD-10 - F32.5) Stable and patient feels her mental health is well-controlled at this time. 03/14/2025 Generalized anxiety disorder (ICD-10 - F41.1) Stable at present time and patient to remain on current medication regimen as well as working on coping strategies to further improve her mental health and anxiety 03/14/2025 Endometriosis of uterus (ICD-10 - N80.0) Spent time discussing patient's elevated AMH level as well as irregular menstrual cycles and recent MRI findings of endometrial enhancements and mild endometrial hyperplasia. Discussed with patient that given those findings as well as her abdominal bloating, she may have an underlying diagnosis of endometriosis. She is pending an appointment with [facility] for further evaluation. Discussed with patient that if [facility] is not able to assist in any further diagnosis or management, could consider referral to an endometriosis specialist either in [place] or [place] 03/14/2025 Mixed hyperlipidemia (ICD-10 - E78.2) Patient [...] further evaluation to assess current cardiovascular risk 03/14/2025 Body mass index [BMI] 28.0-28.9, adult [...] regimen daily to further improve her constipation 03/14/2025 Drug induced constipation (ICD-10 - K59.03) [...] in the next 2 to 3 days Plan Of Treatment Medication Medication Name Sig Start Date Stop Date Notes Wegovy 2.4 MG/0.75ML 0.75 mL Subcutaneous Once a Week 10/0 05/202403/22/2025 Zepbound 5 MG/0.5ML 0.5 mL Subcutaneous weekly for 30 days 03/14/2025 05/13/2025 Lactulose 10 GM/15ML 15 mL as needed Ora lly Once a day for 7 days 03/14/2025 03/23/2025 Next Appt Details Follow Up: as scheduled in J une, Reason: Provider Name:Velma Adams , 04/25/2025 08:30:00 AM, [address] [place] [address], SUITE [facility], [place], [place], [phone], Progress Notes * dEen CHARLESDOB:1985 ( 39 yo F)Acc No.[id number]:03/14/2025 Patient:?Eden CHARLES Appointment Provider:?JER Pineda :1985???Age:39 Y???Sex:Female S upervising Provider:[facility] MD Date:03/14/2025 Address:[address] [place], [place] [phone] Subjective: * Chief Complaints: * ???1. 3m f/u Weight. * HPI: ???Weight History::?Patient presents today for follow-up of her weight. She continues to use Wegovy weekly as well as adjusting her diet and increasing her exercise. She has lost over 30 lbs since starting, but she is now having worsening constipation and indigestion since being on the max dose of Wegovy. * ROS:?General/Constitutional:?Denies?Change in appetite.?Denies?Chills.?Denies?Fever.?Denies?Sleep disturbance.?Denies?Weight gain.?Admits?Weight loss,?actively working on weight loss?.?Respiratory:?Denies?Cough.?Denies?Shortness of breath.?Denies?Shortness of breath with exertion.?Denies?Sputum production.?Denies?Wheezing.?Cardiovascular:?Denies?Chest pain.?Denies?Chest pain with exertion.?Denies?Claudication.?Denies?Dizziness.?Denies?Dyspnea on exertion.?Denies?Irregular heartbeat.?Denies?Palpitations.?Denies?Shortness of breath.?Denies?Weight gain.?Gastrointestinal:?Denies?Dark Stools.?Denies?Bloating.?Denies?Abdominal pain.?Denies?Blood in stool.?Admits?Constipation.?Denies?Decreased appetite.?Denies?Heartburn.?Denies?Nausea.?Denies?Rectal bleeding.?Hematology:?Denies?Bleeding problems.?Denies?Easy bruising.?Denies?Prolonged bleeding.?Denies?Swollen glands.?Women Only:?Admits?Irregular menses.?Genitourinary:?Denies?Nocturia.?Denies?Blood in urine.?Denies?Difficulty urinating.?Denies?Frequent urination.? * Medical History:?HPV - colpo scopy (2011) - normal paps since procedure, HSV. * Surgical History:?Leep proce dure , LP (for severe headache) , Migraines (as a teenager) . * Hospitalization/Major Diagno stic Procedure:?Denies Past Hospitalization. * Family History:?Father: aliv e, Hypertension.?Mother: alive, Hypertension, high cholesterol .?Children: alive, 1 daughter healthy .?Siblings: alive, 1 sister healthy .?1 sister(s) - healthy. 1 daughter(s) - healthy. .? * Social History:?Tobacco Use:?Tobacco Use/Smoking?Are you a?current smoker ?when did you start smoking?11/17/2008 ?How often do you smoke cigarettes??every day ?How many cigarettes a day do you smoke??6-10 ?How soon after you wake up do you smoke your first cigarette??after 60 minutes ?Are you interested in quitting??Thinking about quitting ?Tobacco use other than smoking?Are you an other tobacco user? No ..?Tobacco Control (Standard)?Tobacco use:?Current smoker ?How often do you smoke cigarettes??Every day ?How many cigarettes a day do you smoke??6-10 ???Drugs/Alcohol:?Drugs?Have you used drugs other than those for medical reasons in the past 12 months??No ?Caffeine?Intake:?2-3 cups per day ???Drug/Alcohol:?AUDIT-C (Standard)?Did you have a drink containing alcohol in the past year??Yes ?How often did you have six or more drinks on one occasion in the past year??Less than monthly (1 point) ?How many drinks did you have on a typical day when you were drinking in the past year??1 or 2 drinks (0 point) ?How often did you have a drink containing alcohol in the past year??Monthly or less (1 point) ?Points?2 ?Interpretation?Negative * Medications:?Taking Wegovy 2 .4 MG/0.75ML Solution Auto-injector 0.75 mL Subcutaneous Once a Week , stop date 03/22/2025 * Allergies:?N.K.D.A. Objective: * Vitals:?Temp:97.0F, HR:74/mi n, BP:118/66mm Hg, Wt:190lbs, BMI:28.89Index, Ht:68in, Oxygen sat %:99%. Past Vitals:* 12/07/2024 Temp:96.9F, HR:63/min, BP:12 2/72mm Hg, Wt:206lbs, BMI:31.32Index, Ht:68in, Oxygen sat %:98% * 07/22/2024 Temp:95.6F, HR:87/min, BP:11 8/68mm Hg, Wt:215.4lbs, BMI:32.75Index, Ht:5 ft 8 in, Oxygen sat %:98% * 06/23/2024 Temp:97.5F, HR:71/min, Wt:21 9lbs, BMI:33.30Index, Ht:5 ft 8 in, Oxygen sat %:98% * Examination: ???General Examination: ?GENERAL APPEARANCE:?Age appropriate, in no acute distress, well developed, well nourished.?HEAD:?normocephalic, atraumatic.?EYES:?extraocular movement intact (EOMI), sclera non-icteric.?SKIN:?no suspicious lesions, warm and dry.?HEART:?regular rate and rhythm, S1, S2 normal.?LUNGS:?clear to auscultation bilaterally.?EXTREMITIES:?no clubbing, cyanosis, or edema.?NEUROLOGIC:?nonfocal, alert and oriented, gait normal.?PSYCH:?alert, oriented, good eye contact.? Assessment: * Assessment: 1.?Major depressive disorder , single episode, in full remission - F32.5???2.?Excessive and frequent menstruation with irregular cycle - N92.1 (Primary)???3.?Generalized anxiety disorder - F41.1???4.?Endometriosis of uterus - N80.0 ??5.?Mixed hyperlipidemia - E78.2???6.?Body mass index [BMI] 28.0- 28.9, adult - Z68.28???7.?Drug induced constipation - K59.03??? Plan: * Treatment: 2.?Major depressive disorder , single episode, in full remission? Clinical Notes: Stable and patient feels her mental health is well-controlled at this time.?? 3.?Generalized anxiety disor kasi? Clinical Notes: Stable at present time and patient to remain on current medication regimen as well as working on coping strategies to further improve her mental health and anxiety?? 4.?Endometriosis of uterus? Clinical Notes: Spent time discussing patient's elevated AMH level as well as irregular menstrual cycles and recent MRI findings of endometrial enhancements and mild endometrial hyperplasia. Discussed with patient that given those findings as well as her abdominal bloating, she may have an underlying diagnosis of endometriosis. She is pending an appointment with [facility] for further evaluation. Discussed with patient that if [facility] is not able to assist in any further diagnosis or management, could consider referral to an endometriosis specialist either in [place] or [place]?? 5.?Mixed hyperlipidemia? Clinical Notes: Patient with previous findings of elevated LDL levels of 140s. Patient continues to work on weight loss and has lost nearly 30 pounds over the past year. Will obtain an updated lipid panel to reassess LDL level. If LDL level has not improved patient would benefit from completing a calcium scoring test for further evaluation to assess current cardiovascular risk?? 6.?Body mass index [BMI] 28. 0-28.9, adult? Start Zepbound Solution Auto-injector, 5 MG/0.5ML, 0.5 mL, Subcutaneous, weekly, 30 days, 4, Refills 1;?Stop Wegovy Solution Auto-injector, 2.4 MG/0.75ML, 0.75 mL, Subcutaneous, Once a Week.?? Clinical Notes: Patient continues to work on weight loss [...] bowel regimen daily to further improve her constipation?? 7.?Drug induced constipation ? Start Lactulose Solution, 10 GM/15ML, 15 mL as needed, Orally, Once a day, 7 days, 105 ML, Refills 0.?? Clinical Notes: Patient shares much concern of abdominal discomfort, [...] modalities in the next 2 to 3 days?? * Follow Up:?as scheduled in J une * Images: Billing Information: * Visit Code:? 68425 Office Visit, Est Pt., Level 4. * Procedure Codes:? * Electronic signature of Anastasiia Terrell MD on 03/16/2025 at 02:09 PM EDT Sign off status: Pending * Appointment Provider:?JER Pineda Date:?03/14/2025 Generated for Tiffany shay/Finn/Jp on:?03/16/2025 02:09 PM EDT History and Physical Notes * HPI (History of Present Illness) Category Sub-Category Detail Notes Category Not es Weight History: Patient pres ents today for follow-up of her weight. She continues to use Wegovy weekly as well as adjusting her diet and increasing her exercise. She has lost over 30 lbs since starting, but she is now having worsening constipation and indigestion since being on the max dose of Wegovy. Examination Category Sub-Category Detail Notes Category Not es General Examination GENERAL APPEARANCE: Age appr opriate, in no acute distress, well developed, well nourished HEAD: normocephalic, atrau matic EYES: extraocular movement intact (EOMI), sclera non-icteric HEART: regular rate and rhy thm, S1, S2 normal LUNGS: clear to auscultatio n bilaterally NEUROLOGIC: nonfocal, alert and oriented, gait normal SKIN: no suspicious lesion s, warm and dry EXTREMITIES: no clubbing, cyanosi s, or edema PSYCH: alert, oriented, goo d eye contact
--- OUTSIDE RECORDS SUMMARY | 2025-03-16 14:10 | XMS_ITS ---
Author Organization [facility] Address [address] [place] [phone] Care Team Providers Care Manager Php Name Role Phone Velma Adams Primary Care Provider BEATA TERRELL MD Unavailable Unavailable REASON FOR VISIT OBGYN Encounters Encounter Location Date Provider Diagnosis [facility] Terrell MD [address] [place] [phone] 03/15/2025 Velma Adams Plan Of Treatment Next Appt Details Provider Name:Velma Adams , 04/25/2025 08:30:00 AM, [address] [place] [address], [place] [address], [place], [place], [phone], Progress Notes * Eden CHARLESDOB:1985 ( 39 yo F)Acc No.[id number]:03/15/2025 Patient:?ARACELIMercedessa :1985???Age:39 Y???Sex:Female Address:[place] [address] * * Date:?
== END 2025-03-16 12:56 | disposition home or self-care (01) ==
LOC: HO.US 12:55
PROVIDERS: PCP Nurse Practitioner Family; Visit Provider Student in an Organized Health Care Education/Training Program
DX: I83.811 Varicose veins of right lower extremity with pain (principal); I83.891 Varicose veins of right lower extremity with other complications
CPT/HCPCS: 36482; C1894

== ENCOUNTER → 2025-03-16 13:00 | Outpatient (BNV) | payer BC, SELFPAY | PROVIDERS: PCP Nurse Practitioner Family; Visit Provider Student in an Organized Health Care Education/Training Program | DX: I83.91 Asymptomatic varicose veins of right lower extremity (principal) | CPT/HCPCS: 36482 ==

== ENCOUNTER 2025-03-25 14:23 | Outpatient (REF) | payer BC, SELFPAY ==
--- NOTE | ~2025-03-25 | US_ITS ---
EXAMINATION: TRIPLEX SCANNING OF RIGHT LOWER EXTREMITY; SUPERFICIAL ULTRASOUND WITH DOPPLER OF RIGHT LOWER EXTREMITY CLINICAL INFORMATION: Status post Venaseal of the right great saphenous vein COMPARISON: preprocedure studies. 03/16/2025. TECHNIQUE: Color flow triplex imaging and compression Doppler were performed as well as superficial ultrasound with Doppler. FINDINGS: RIGHT LOWER EXTREMITY DEEP VENOUS SYSTEM: Respiratory variation, normal compression and augmented flow are noted throughout the lower extremity. The visualized common femoral vein, femoral vein, profunda femoral vein, popliteal vein and the calf veins show no evidence of deep venous thrombosis. There is no evidence of Sy's cyst. SUPERFICIAL VENOUS SYSTEM: The great saphenous vein is occluded from the access site to 1.4 cm just before the saphenofemoral junction. There is no extension of thrombus into the deep system. US/US venous duplex LE RT IMPRESSION: 1. No evidence of DVT. 2. Excellent appearance status post ablation of the right great saphenous vein. Electronically signed by: Kit Sesay MD 03/25/2025 03:30 PM EDT
--- OUTSIDE RECORDS SUMMARY | 2025-03-25 14:27 | XMS_ITS ---
Author Organization [facility] Address [address] [place] [phone] Care Team Providers Care Lead Java Developer Architect Name Role Phone Velma Adams Primary Care Provider BEATA TERRELL MD Unavailable Unavailable REASON FOR VISIT *zepbound PA Encounters Encounter Location Date Provider Diagnosis Beata Terrell MD [address] [phone] 03/21/2025 Velma Adams Plan Of Treatment Next Appt Details Provider Name:Velma Adams , 04/25/2025 08:30:00 AM, [address] [place] [address], [place] [address], [place], [place], [phone], Progress Notes * Eden CHARLESDOB:1985 ( 39 yo F)Acc No.[id number]:03/21/2025 Patient:?MARLON Eden :1985???Age:39 Y???Sex:Female Address:[place] [address] * * Date:?
--- OUTSIDE RECORDS SUMMARY | 2025-03-25 14:27 | XMS_ITS | Patient Health Record ---
Author Organization Beata Terrell MD Address [address] [place] [phone] Care Team Providers Care Virtualization Consultant Name Role Phone Velma Adams Primary Care Provider BEATA TERRELL MD Unavailable Unavailable Beata Terrell Unavailable [phone] Allergies No Known Allergies Results Component Value Reference Range Notes Vitamin [id number] Reviewed date:04/27/2024 03:22:23 PM Interpretation: Performing Lab:[facility], [facility] [place], Phone - [phone], Director - MDJodry Notes/Report: Vitamin B12 331 437-4897 pg/mL HKVS-Ahftfnf-[id number] Reviewed date:04/27/2024 03:22:23 PM Interpretation: Performing Lab:[facility], [place] [place], Phone - [phone], Director - MDJodry Notes/Report: DHEA-Sulfate 79.4 57.3-279.2 ug/dL Testosterone-256996 Reviewed date:04/27/2024 03:22:23 PM Interpretation: Performing Lab:[facility], Phone - [phone], Director - MDJodry Notes/Report: Testosterone 16 8-60 ng/dL Luteinizing Hormone(LH)-0042 83 Reviewed date:04/27/2024 03:22:23 PM Interpretation: Performing Lab:[facility] [place], Phone - [phone], Director - MDJodry Notes/Report: LH 7.5 Adult Female Range Follicular phase 2.4 - 12.6 Ovulation phase 14.0 - 95.6 Luteal phase 1.0 - 11.4 Postmenopausal 7.7 - 58.5 FSH-725197 Reviewed date:04/27/2024 03:22:23 PM Interpretation: Performing Lab:[facility] [place], Phone - [phone], Director - Blaise Notes/Report: FSH 3.1 Adult Female Range Follicular phase 3.5 - 12.5 Ovulation phase 4.7 - 21.5 Luteal phase 1.7 - 7.7 Postmenopausal 25.8 - 134.8 Progesterone-372751 Reviewed date:04/27/2024 03:22:23 PM Interpretation: Performing Lab:[facility] [place], [address] [place] [address], Phone - [phone], Director - Blaise Notes/Report: Progesterone 0.1 Follicular phase 0.1 - 0.9 Luteal phase 1.8 - 23.9 Ovulation phase 0.1 - 12.0 First trimester 11.0 - 44.3 Second trimester 25.4 - 83.3 Third trimester 58.7 - 214.0 Postmenopausal 0.0 - 0.1 Insulin-384876 Reviewed date:04/27/2024 03:22:23 PM Interpretation: Performing Lab:[facility] [place], [address] [place] [address], Phone - [phone], Director - Blaise Notes/Report: Insulin 15.3 2.6-24.9 uIU/mL Prolactin-964776 Reviewed date:04/27/2024 03:22:23 PM Interpretation: Performing Lab:[facility] [place], [address] [place] [address], Phone - [phone], Director - Blaise Notes/Report: Prolactin 11.6 4.8-33.4 ng/mL Estrogens, Total-339368 Reviewed date:04/27/2024 03:22:23 PM Interpretation: Performing Lab:[facility] [place] [address] [place] [address], Phone - [phone], Director - Blaise Notes/Report: Estrogens, Total 421 Prepubertal < 40 Female Cycle: 1-10 Days 16 - 328 11-20 Days 34 - 501 21-30 Days 48 - 350 Post-Menopausal 40 - 244 CBC With Differential/Platel et-927373 Reviewed date:04/27/2024 03:22:23 PM Interpretation: Performing Lab:[facility] [place] [address] [place] [address], Phone - [phone], Director - MDJodry Notes/Report: WBC 9.4 3.4-10.8 x10E3/uL RBC 4.66 [...] Grans (Abs) 0.0 0.0-0.1 x10E3/uL Measles/Mumps/Rubella Immuni ty-[id number] Reviewed date:04/27/2024 03:22:23 PM Interpretation: Performing Lab:[facility] [place], [address] [place] [address], Phone - [phone], Director - MDJodry Notes/Report: Rubella Antibodies, IgG 1.80 Immune > [...] Mumps virus or previous vaccination. Vitamin D, 04-Jhfaacv-174820 Reviewed date:04/27/2024 03:22:23 PM Interpretation: Performing Lab:[facility] [place], [address] [place] [address], Phone - [phone], Director - Blaise Notes/Report: Vitamin D, 25-Hydroxy 19.0 30.0-100.0 ng/mL Vitamin D deficiency has been defined by the [place] of [employer] and an Endocrine Society practice guideline as a level of serum 25-OH vitamin D less than 20 ng/mL (1,2). The Endocrine Society went on to further define vitamin D insufficiency as a level between 21 and 29 ng/mL (2). 1. IOM ([place] of [employer]). 2010. Dietary reference intakes for calcium and D. [place]: The National Academies Press. 2. Ritchie MF, Jimbo HARTMAN, Kathleen SAINI, et al. Evaluation, treatment, and prevention of vitamin D deficiency: an Endocrine Society clinical practice guideline. JCEM. 2010; 96(7):1911-30. HCV Antibody RFX to Quant PC [id number] Reviewed date:04/27/2024 03:22:23 PM Interpretation: Performing Lab:[facility] [place], [address] [facility], Phone - [phone], Director - Blaise Notes/Report: HCV Ab Non Reactive Non Reactive Interpretation: Not infected with HCV unless early or acute infection is suspected (which may be delayed in an immunocompromised individual), or other evidence exists to indicate HCV infection. Comp. Metabolic Panel (14)-3 85772 Reviewed date:04/27/2024 03:22:23 PM Interpretation: Performing Lab:[facility] [place], [address] [place] [address], Phone - [phone], Director - Blaise Notes/Report: Glucose 83 70-99 [...] IU/L ALT (SGPT) 23 0-32 IU/L LP+Non-HDL Cholesterol-76726 5 Reviewed date:04/27/2024 03:22:23 PM Interpretation: Performing Lab:[facility], [address] [place] [address], Phone - [phone], Director - Natachay Notes/Report: Cholesterol, Total 215 100-199 mg/dL Triglycerides 163 0-149 mg/dL HDL Cholesterol 38 >39 mg/dL VLDL Cholesterol Bubba 30 5-40 mg/dL LDL Chol Calc (NIH) 147 0-99 mg/dL Non-HDL Cholesterol 177 0-129 mg/dL UA/M w/rflx Culture, Routine -[id number] Reviewed date:04/27/2024 03:22:24 PM Interpretation: Performing Lab:[facility], [address] [place] [address], Phone - [phone], Director - Blaise Notes/Report: Specific [place] 1.018 1.005-1.030 pH 5.5 5.0-7.5 Urine-Color Yellow [...] seen /lpf Bacteria None seen None seen/Few PDF Report Reviewed date:04/27/2024 03:22:24 PM Interpretation: Performing Lab:[facility], [address] [facility], [place], Phone - [phone], Director - Blaise Notes/Report: TSH reflex to F2X-[id number] Reviewed date:04/27/2024 03:22:24 PM Interpretation: Performing Lab:[facility], [address] [facility], Phone - [phone], Director - Blaise Notes/Report: TSH 1.300 0.450-4.500 uIU/mL Anti-Mullerian Hormone (AMH) -948299 Reviewed date:04/27/2024 03:22:24 PM Interpretation: Performing Lab:[facility], [address] [facility], [place], Phone - [phone], Director - Blaise Notes/Report: Anti-Mullerian Hormone (AMH) 8.50 For assays employing antibodies, the possibility exists for interference by heterophile antibodies in the samples.1 1.Nilay Pete Interferences in Immunoassays - still a threat. Clin. Chem. 2000; 46: 9793-5037. This test was developed and its performance characteristics determined by [employer]. It has not been cleared or approved by the Food and Drug Administration. Reference Range: Females 36 - 40y: 0.42 - 8.34 Median 1.69 AMH concentrations of >= 1.06 ng/mL is correlated with a better response to ovarian stimulation, produced more retrievable oocytes and higher odds of live according to Ceciliaer et al. Fertility and Sterility. 2010: 94:6464-9741. The current AMH test method correlates with [...] diagnose or exclude an AMH-secreting ovarian tumor. US Pelvic Transvaginal Reviewed date:10/13/2024 02:17:33 PM [...] arcuate uterine configuration. Otherwise unremarkable uterus. WSN: [id number] Ordering Physician: Velma Adams Dictated By: Amador [...] arcuate uterine configuration. Otherwise unremarkable uterus. WSN: [id number] Ordering Physician: Velma Adams PDF Report Reviewed date:06/28/2024 10:57:23 AM Interpretation: Performing Lab:[facility], [address] [place] [address], [place], Phone - [phone], Director - Blaise Notes/Report: Clinical Information:SRC: Ultrasound: Transvaginal Pel colby Sono Reviewed date:10/13/2024 03:30:22 PM Interpretation: Performing Lab: Notes/Report: CBC With Differential/Platel et-660534 Reviewed date:12/08/2024 08:28:40 PM Interpretation: Performing Lab:[facility], [address] [facility], Phone - [phone], Director - MDAlexandro Notes/Report: WBC 8.6 3.4-10.8 x10E3/uL RBC 4.40 [...] 0.0 0.0-0.1 x10E3/uL Comp. Metabolic Panel (14)-3 04203 Reviewed date:12/08/2024 08:28:40 PM Interpretation: Performing Lab:[facility], [address] [facility], Phone - [phone], Director - MDJulianny Notes/Report: Glucose 76 70-99 mg/dL BUN 11 [...] IU/L ALT (SGPT) 16 0-32 IU/L LP+Non-HDL Cholesterol-98934 5 Reviewed date:12/08/2024 08:28:40 PM Interpretation: Performing Lab:[facility], [address] [facility], [place], Phone - [phone], Director - Blaise Notes/Report: Cholesterol, Total 183 100-199 mg/dL Triglycerides 109 0-149 mg/dL HDL Cholesterol 38 >39 mg/dL VLDL Cholesterol Bubba 20 5-40 mg/dL LDL Chol Calc (NIH) 125 0-99 mg/dL Non-HDL Cholesterol 145 0-129 mg/dL MR Pelvis W WO Reviewed date:02/28/2025 05:02:15 PM Interpretation: Performing Lab: Notes/Report: Respiratory Panel w/ SARS-Co [id number] Reviewed date:06/28/2024 10:57:23 AM Interpretation: Performing Lab:[facility], [address] [facility], [place], Phone - [phone], Director - Blaise Notes/Report: Clinical Information:SRC: Adenovirus [...] Detected Mycoplasma pneumoniae Not Detected Not Detected US Pelvic Transabdominal Reviewed date:10/13/2024 02:17:33 PM [...] arcuate uterine configuration. Otherwise unremarkable uterus. WSN: [id number] Ordering Physician: Velma Adams Dictated By: Amador [...] arcuate uterine configuration. Otherwise unremarkable uterus. WSN: [id number] Ordering Physician: Velma Adams Reason For Referral Reason faxed Diagnosis 1 Body mass index [BMI ] 33.0-33.9, adult (Z68.33) Referral Organization [facility] Referring Provider First Name Velma Referring Provider Last Name Bryan Referring Provider Speciality Nurse Mojgan salinas Referred Provider Florence Mendoza Referred Provider Specialty Dietitian General Notes Asya ROSENBERG 02/2024 08:43:02 AM >[facility], [facility] 04/20/2024 02:45:03 PM > [...] Notes Asya ROSENBERG 02/2024 08:44:53 AM >[facility]ed, [facility] 04/20/2024 02:45:33 PM >ASMAshanti ARIZA R 04/20/2024 02:45:03 PM > they will book directly with Patient, [facility] 04/22/2024 04:57:33 PM >Ins referral completed Referral Priority Routine Referral Appointment Date 09/21/2024 Reason Can we refer to Francia GARCIAN - any provider for eval for fibroids and thick endometrial lining faxed Diagnosis 1 Leiomyoma of uterus, unspecified (D25.9) Referral Organization [facility] Referring Provider First Name Velma Referring Provider Last Name Bryan Referring Provider Speciality Nurse Mojgan salinas Referred Provider Specialty Ticket Speculator General Notes [facility] 02/15 04:09:27 PM >completed [facility] Referral form and faxed Referral Priority Routine Medications Medication SIG (Take, Route, Fr equency, Duration) Notes Start Date End Date Status Zepbound 5 MG/0.5ML 0.5 mL Subcutaneous weekly for 30 days 03/14/2025 05/13/2025 Active Valtrex 1 GM 2 Tablets Orally Twi ce a day for 1 days Active Immunizations Vaccine Route Administration Date Status Comme nts Influenza-Afluria (IIV4) Unknown 11/22/2020 Administere d Influenza-Afluria (IIV4) Unknown 10/07/2021 Administere d SUIXI-04-Warajsw Vaccine Unknown 07/26/2021 Administere d KXKCY-10-Gxlrzph Vaccine Unknown 08/23/2021 Administere d *Tdap Unknown 03/29/2021 Administered Social History Tobacco Use: Social History Observation [...] Status Risk Notes Problem Vitamin D deficiency (36414866) Vitamin D deficiency, unspecified (E55.9) Active confirmed Problem Mixed hyperlipidemia (721330363) Mixed hyperlipidemia (E78.2) Active confirmed Problem Tobacco user (020949273) Nicotine dependence, cigarettes, uncomplicated (F17.210) Active confirmed Problem Major depression, single episode, in complete remission (61085235) Major depressive disorder, single episode, in full remission (F32.5) Active confirmed Problem Generalized anxiety disorder (68141489) Generalized anxiety disorder (F41.1) Active confirmed Problem Cramp in lower leg associated with rest (877729624) Sleep related leg cramps (G47.62) Active confirmed Problem Endometriosis of uterus (83017532) Endometriosis of uterus (N80.0) Active confirmed Problem Intermenstrual bleeding - irregular (96235831) Excessive and frequent menstruation with irregular cycle (N92.1) Active confirmed Problem Paresthesia (finding) (93140340) Paresthesia of skin (R20.2) Active confirmed Problem Body mass index 30.00 to 34.99 (113379733401734) Body mass index [BMI] 33.0-33.9, adult (Z68.33) Active confirmed Vital Signs Heart Rate 74 /min 03/14/2025 Temperature 97.0 degrees Fahrenheit 03/14/2025 Blood pressure diastolic 66 mm Hg 03/14/2025 Oximetry 99 % 03/14/2025 Height 68 in 03/14/2025 Blood pressure systolic 118 mm Hg 03/14/2025 Weight 190 lbs 03/14/2025 BMI 28.89 kg/m2 03/14/2025 Encounters Encounter Location Date Provider Diagnosis Beata Terrell MD [address] [id number] 04/19/2024 Velma Adasm Encounter for genera l adult medical examination [...] neoplasm of cervix Z12.4 Beata Terrell MD [address] [id number] 05/25/2024 Beata Terrell MD [address] [id number] 06/23/2024 Velma Adams Acute upper respirat ory infection, unspecified J06.9 and Postnasal drip R09.82 Beata Terrell MD [address] [id number] 07/22/2024 Velma Adams Body mass index [BMI ] 33.0-33.9, adult Z68.33 ; Excessive and frequent menstruation with irregular cycle N92.1 ; Nicotine dependence, cigarettes, uncomplicated F17.210 ; Major depressive disorder, single episode, in full remission F32.5 and Generalized anxiety disorder F41.1 Beata Terrell MD [address] [id number] 12/07/2024 Velma Adams Excessive and freque nt menstruation with irregular cycle N92.1 ; Major depressive disorder, single episode, in full remission F32.5 ; Generalized anxiety disorder F41.1 ; Endometriosis of uterus N80.0 and Mixed hyperlipidemia E78.2 Beata Terrell MD [address] [id number] 03/14/2025 Velma Adams Excessive and freque nt menstruation with irregular cycle N92.1 ; Major depressive disorder, single episode, in full remission F32.5 ; Generalized anxiety disorder F41.1 ; Endometriosis of uterus N80.0 ; Mixed hyperlipidemia E78.2 ; Body mass index [BMI] 28.0-28.9, adult Z68.28 and Drug induced constipation K59.03 Beata Terrell MD [address] [id number] 03/21/2025 Velma Bryan Terrell MD [address] [id number] 04/27/2024 Velma Adams Vitamin D deficiency , unspecified E55.9 and Body mass index [BMI] 33.0-33.9, adult Z68.33 Beata Terrell MD [address] [id number] 05/06/2024 Velma Adams Beata Terrell MD [address] [id number] 06/10/2024 Velma Adams Body mass index [BMI ] 33.0-33.9, adult Z68.33 Beata Terrell MD [address] [id number] 06/23/2024 Velma Terrell MD [address] [id number] 06/28/2024 Velma Adams [facility] [address] [id number] 10/11/2024 Velma Adams Excessive and freque nt menstruation with irregular cycle N92.1 Beata Terrell MD [address] [id number] 10/13/2024 Velma Adams Beata Terrell MD [address] [id number] 11/22/2024 Velma Adams Beata Terrell MD [address] [id number] 12/08/2024 Velma Adams Beata Terrell MD [address] [id number] 02/28/2025 Velma Adams Leiomyoma of uterus, unspecified D25.9 Beata Terrell MD [address] [id number] 03/15/2025 Velma Bryan Terrell MD [address] [id number] 04/08/2024 Velma Adams Beata Terrell MD [address] [id number] 05/07/2024 Velma Adams Beata Terrell MD [address] [id number] 05/19/2024 Velma Adams Beata Terrell MD [address] [id number] 05/19/2024 Velma Adams Beata Terrell MD [address] [id number] 06/21/2024 Velma Adams Body mass index [BMI ] 33.0-33.9, adult Z68.33 Beata Terrell MD [address] [id number] 06/21/2024 Velma Adams Beata Terrell MD [address] [id number] 06/21/2024 Velma Adams Beata Terrell MD [address] [id number] 07/07/2024 Velma Adams Body mass index [BMI ] 33.0-33.9, adult Z68.33 Beata Terrell MD [address] [id number] 08/02/2024 Velma Adamssamanta Terrell MD [address] [id number] 08/03/2024 Velma Joyae Acute maxillary sinusitis, unspecified J01.00 Beata Terrell MD [address] [id number] 08/04/2024 Velma Terrell MD [address] [id number] 08/23/2024 Velmashad Adams Body mass index [BMI ] 33.0-33.9, adult Z68.33 Beata Terrell MD [address] [id number] 09/23/2024 Velma Bryan Body mass index [BMI ] 33.0-33.9, adult Z68.33 Beata Terrell MD [address] [id number] 09/23/2024 Velmashad Terrell MD [address] [id number] 12/09/2024 Velma Terrell MD [address] [id number] 02/01/2025 Velma Terrell MD [address] [id number] 03/19/2025 Velma Terrell MD [address] [id number] 03/21/2025 Velma Terrell MD [address] [id number] 03/22/2025 Velma Bryan Assessments Encounter Date Diagnosis (ICD Code) Assessment Notes Treatment Notes Treatment Clinical Notes Section Notes 04/19/2024 Major depressive disorder, single episode, in full remission (ICD-10 - F32.5) Stable and pt has noted improved mental health since last visit 04/27/2024 Vitamin D deficiency, unspecified (ICD-10 - [...] index [BMI] 33.0-33.9, adult (ICD-10 - Z68.33) 04/19/2024 Encounter for general adult medical examination without abnormal findings (ICD-10 - Z00.00) General healthcare up-to-date. Will obtain updated routine labs.Plan will be for annual in 1 year 07/22/2024 Excessive and frequent menstruation with irregular [...] a referral to the endometriosis specialist in [place] and patient agreeable to move forward with [...] patient states she has not heard from [facility] MANAGER OF PRODUCTION. Provided patient with this contact information as patient would benefit from consultation and further plan for these findings 03/14/2025 Generalized anxiety disorder (ICD-10 - F41.1) [...] need any further assistance with smoking cessation 04/19/2024 Generalized anxiety disorder (ICD-10 - F41.1) Stable at present time and pt states her anxiety has improved since last visit 07/22/2024 Major depressive disorder, single episode, in [...] endometriosis. She is pending an appointment with [facility] MANAGER OF PRODUCTION for further evaluation. Discussed with patient that if [facility] MANAGER OF PR[employer] is not able to assist in any further diagnosis or management, could consider referral to an endometriosis specialist either in [place] or [place] 04/19/2024 Nicotine dependence, cigarettes, uncomplicated (ICD-10 - F17.210) Pt reports she has not been consistent with using the nicotine patch but has decreased her amount. Pt encouraged to return to using her previously provided Nicotine Patches to assist with smoking cessation 03/14/2025 Mixed hyperlipidemia (ICD-10 - E78.2) Patient [...] her anxiety has improved since last visit 04/19/2024 Mixed hyperlipidemia (ICD-10 - E78.2) Plan will be to recheck labs to ensure improvement in her lipids given her diet and lifestyle adjustments. If there is no improvement, pt would benefit from completing a calcium scoring test for further evaluation to assess current CAD risk 04/19/2024 Asymptomatic varicose veins of bilateral [...] for consult and to discuss further interventions 12/07/2024 Mixed hyperlipidemia (ICD-10 - E78.2) Patient [...] approved for Zepbound will return back to [facility] and will continue on a bowel regimen [...] the next 2 to 3 days 04/19/2024 Excessive and frequent menstruation with irregular [...] as COCs, to help regulate her cycles 04/19/2024 Other dietary vitamin B12 deficiency anemia [...] treatment. Pt agreeable to meet with a wireless team member for additional support. Also, given patient's irregular [...] she should continue to follow up for HOME APPLIANCE TECH as scheduled 04/19/2024 Other 04/08/2024 Other checked masspa t, no previously filled meds Plan Of Treatment Pending Test Test Name Order Date 25OH VITAMIN D 12/05/2022 COMPLETE BLOOD COUNT 12/05/2022 COMPREHENSIVE METABOLIC PANEL 12/05/2022 FERRITIN 12/05/2022 HEMOGLOBIN A1C 12/05/2022 LIPID PANEL 12/05/2022 TSH WITH REFLEX TO FT4 12/05/2022 VITAMIN B12 12/05/2022 Next Appt Details Provider Name:Velma Adams , 04/25/2025 08:30:00 AM, [address] [place] [address], [address], [place], [place], [phone], Insurance Providers Payer Name Payer Address Payer Phone Subscriber Number Group Number Insured Name Patient Relationship to Insured Coverage Start Date Coverage End Date [employer] [facility] [address] [place] [address] [phone] [id number] Eden Charles Self - patient is the insured Medical (General) History Medical History History ICD Code HPV - colposcopy (2010) - normal paps si nce procedure HSV Surgical History Surgery Date(Month/Year) Leep procedure LP (for severe headache) Migraines (as a teenager) Hospitalization History Reason Date(Month/Year)
--- OUTSIDE RECORDS SUMMARY | 2025-03-25 14:27 | XMS_ITS ---
Author Organization [facility] Address [address] [place] [phone] Care Team Providers Care Shipwright Name Role Phone Velma Adams Primary Care Provider BEATA TERRELL MD Unavailable Unavailable REASON FOR VISIT Zepbound - Approved Encounters Encounter Location Date Provider Diagnosis Beata Terrell MD [address] [id number] 03/22/2025 Velma Adams Plan Of Treatment Next Appt Details Provider Name:Velma Adams , 04/25/2025 08:30:00 AM, [address] [place] [address], [place] [address], [place], [place], [phone], Progress Notes * Eden MASONDOB:1985 ( 39 yo F)Acc No.[id number]:03/22/2025 Patient:?ARACELIEden :1985???Age:39 Y???Sex:Female Address:[place] [address] * true * Date:? Generated for Tiffany shay/Finn/eTransmitting on:?03/25/2025 02:27 PM EDT
--- OUTSIDE RECORDS SUMMARY | 2025-03-25 14:27 | XMS_ITS ---
Author Organization [facility] Address [address] [place] [phone] Care Team Providers Care Director Environmental Name Role Phone Velma Adams Primary Care Provider BEATA TERRELL MD Unavailable Unavailable REASON FOR VISIT Wegovy/Zepbound Encounters Encounter Location Date Provider Diagnosis Beata Terrell MD [address] [id number] 03/21/2025 Velma Adams Plan Of Treatment Next Appt Details Provider Name:Velma Adams , 04/25/2025 08:30:00 AM, [address] [place] [address], [place] [address], [place], [place], [phone], Progress Notes * Bobby MASONantDOB:1985 ( 39 yo F)Acc No.[id number]:03/21/2025 Patient:?ARACELIEden :1985???Age:39 Y???Sex:Female Address:[place] [address] * true * Date:? Generated for Baileyi jaspal/Finn/eTransmitting on:?03/25/2025 02:26 PM EDT
== END 2025-03-25 14:24 | disposition home or self-care (01) ==
LOC: HO.US 14:23
PROVIDERS: PCP Nurse Practitioner Family; Visit Provider Physician Assistant
DX: I87.2 Venous insufficiency (chronic) (peripheral) (principal)
CPT/HCPCS: 93971

== ENCOUNTER → 2025-03-25 14:44 | Outpatient (BNV) | payer BC, SELFPAY | PROVIDERS: PCP Nurse Practitioner Family; Visit Provider Radiology Diagnostic Radiology | DX: I83.891 Varicose veins of right lower extremity with other complications (principal) | CPT/HCPCS: 93971 ==

== ENCOUNTER → 2025-06-29 12:51 | Day surgery (SDC) | payer BC, SELFPAY ==
--- OUTSIDE RECORDS SUMMARY | 2025-06-06 15:59 | XMS_ITS | Patient Health Record ---
[facility] Organization [facility] Address [address] [place] [address] Care Team Providers Care Tube Balancer Name Role Phone Sonja Camacho Primary Care Provide r Unavailable Corbin, Robert Unavailable [phone] Reason For Referral No Information Medications Medication SIG (Take, Route, Fr equency, Duration) Notes Start Date End Date Status LORazepam 0.5 MG 1 tablet at bedtime as needed Orally prn Active Ocella 3-0.03 MG 1 tablet Orally Once a day; Duration: 28 day(s) Active Social History Alcohol Screen Question Answer Notes Did you have a drink containing alcohol in the p ast year? Yes Points 0 Interpretation Negative Problems Problem Type SNOMED Code ICD Code Onset Dates Problem Status W/U Status Risk Notes Problem Onychomycosis (826449844) Onychomycosis (110.1) Active confirmed Problem Pain in Limb (729.5) Active confirmed Plan Of Treatment No Information Insurance Providers Payer Name Payer Address Payer Phone Subscriber Number Group Number Insured Name Patient Relationship to Insured Coverage Start Date Coverage End Date [employer] [address] [place] [phone] [id number] Kody Charles Child - Insured has Financial Responsibility Medical (General) History Medical History History ICD Code anxiety back, hip, knee pain broken bones headaches/migraines chicken pox Surgical History Surgery Date(Month/Year) tonsillectomy and adenoidectomy 1993 wisdom teeth extraction 04/2013
--- OUTSIDE RECORDS SUMMARY | 2025-06-06 15:59 | XMS_ITS | Patient Health Record ---
Author Organization Beata Terrell MD Address [address] [place] [id number] Care Team Providers Care Tension Worker Name Role Phone AdamsVelma Primary Care Provider BEATA TERRELL MD Unavailable Unavailable Allergies No Known Allergies Results Component Value Reference Range Notes CBC With Differential/Platel et-[id number] Reviewed date:12/08/2024 08:28:40 PM Interpretation: Performing Lab:[facility] [place], [address] [place] [address], [place], Phone - [phone], Director - Blaise Notes/Report: WBC 8.6 3.4-10.8 [...] 0.0 0.0-0.1 x10E3/uL Comp. Metabolic Panel (14)-3 [id number] Reviewed date:12/08/2024 08:28:40 PM Interpretation: Performing Lab:[facility] [place], [address] [facility], Phone - [phone], Director - MDAlexandro Notes/Report: Glucose 76 70-99 mg/dL BUN 11 [...] IU/L ALT (SGPT) 16 0-32 IU/L LP+Non-HDL Cholesterol-24748 5 Reviewed date:12/08/2024 08:28:40 PM Interpretation: Performing Lab:[facility] [place], [address] [facility], Phone - [phone], Director - MDJulianny Notes/Report: Cholesterol, Total 183 100-199 mg/dL Triglycerides 109 0-149 mg/dL HDL Cholesterol 38 >39 mg/dL VLDL Cholesterol Bubba 20 5-40 mg/dL LDL Chol Calc (NIH) 125 0-99 mg/dL Non-HDL Cholesterol 145 0-129 mg/dL MR Pelvis W WO Reviewed date:02/28/2025 05:02:15 PM Interpretation: Performing Lab: Notes/Report: US Pelvic Transabdominal Reviewed date:10/13/2024 02:17:33 PM [...] arcuate uterine configuration. Otherwise unremarkable uterus. WSN: [id number] Ordering Physician: Velma Adams Dictated By: Amador Davalos MD US Pelvic Transvaginal Reviewed date:10/13/2024 02:17:33 PM [...] arcuate uterine configuration. Otherwise unremarkable uterus. WSN: [id number] Ordering Physician: Velma Adams Dictated By: Amador Davalos MD Urinalysis, [id number] Reviewed date:04/26/2025 11:37:01 AM Interpretation: Performing Lab:[facility] [place], [address] [facility], Phone - [phone], Director - MDJodry Notes/Report: Specific [place] 1.020 1.005-1.030 pH 5.5 5.0-7.5 Urine-Color Yellow Yellow Appearance Clear Clear WBC Esterase Negative Negative Protein Negative Negative/Trace Glucose Negative Negative Ketones Negative Negative Occult Blood Negative Negative Bilirubin Negative Negative Urobilinogen,Semi-Qn 0.2 0.2-1.0 mg/dL Nitrite, Urine Negative Negative Microscopic Examination Micr oscopic follows if indicated. Microscopic Examination See below: Micr oscopic was indicated and was performed. WBC None seen 0 - 5 /hpf RBC None seen 0 - 2 /hpf Epithelial Cells (non renal) 0-10 0 - 10 /hpf Casts None seen None seen /lpf Bacteria None seen None seen/Few CBC With Differential/Platel et-[id number] Reviewed date:04/26/2025 11:37:01 AM Interpretation: Performing Lab:[facility] [place], [address] [facility], [place], Phone - [phone], Director - MDJodry Notes/Report: WBC 6.8 3.4-10.8 x10E3/uL RBC 4.36 3.77-5.28 x10E6/uL Hemoglobin 13.5 11.1-15.9 g/dL Hematocrit 41.8 34.0-46.6 % MCV 96 79-97 fL MCH 31.0 26.6-33.0 pg MCHC 32.3 31.5-35.7 g/dL RDW 13.1 11.7-15.4 % Platelets 322 150-450 x10E3/uL Neutrophils 60 Not Estab. % Lymphs 25 Not Estab. % Monocytes 7 Not Estab. % Eos 6 Not Estab. % Basos 2 Not Estab. % Neutrophils (Absolute) 4.1 1.4-7.0 x10E3/uL Lymphs (Absolute) 1.7 0.7-3.1 x10E3/uL Monocytes(Absolute) 0.5 0.1-0.9 x10E3/uL Eos (Absolute) 0.4 0.0-0.4 x10E3/uL Baso (Absolute) 0.1 0.0-0.2 x10E3/uL Immature Granulocytes 0 Not Estab. % Immature Grans (Abs) 0.0 0.0-0.1 x10E3/uL Vitamin D, 17-Enjvtla-[id number] Reviewed date:04/26/2025 11:37:01 AM Interpretation: Performing Lab:[facility] [place], [address] [place] [address], Phone - [phone], Director - Blaise Notes/Report: Vitamin D, 25-Hydroxy 21.2 30.0-100.0 ng/mL Vitamin D deficiency has been defined by the [place] of [employer] and an Endocrine Society practice guideline as a level of serum 25-OH vitamin D less than 20 ng/mL (1,2). The Endocrine Society went on to further define vitamin D insufficiency as a level between 21 and 29 ng/mL (2). 1. IOM ([place] of [employer]). 2010. Dietary reference intakes for calcium and D. [place]: The National Academies Press. 2. Ritchie KERR, Jimbo HARTMAN, Kathleen SAINI, et al. Evaluation, treatment, and prevention of vitamin D deficiency: an Endocrine Society clinical practice guideline. JCEM. 2010; 96(7):1911-30. HCV Antibody RFX to Quant PC [id number] Reviewed date:04/26/2025 11:37:02 AM Interpretation: Performing Lab:[facility] [place], [address] [place] [address], Phone - [phone], Director - Blaise Notes/Report: HCV Ab Non Reactive Non Reactive Interpretation: Not infected with HCV unless early or acute infection is suspected (which may be delayed in an immunocompromised individual), or other evidence exists to indicate HCV infection. Comp. Metabolic Panel (14)-3 [id number] Reviewed date:04/26/2025 11:37:02 AM Interpretation: Performing Lab:[facility] [place], [address] [facility], [place], Phone - [phone], Director - Natachay Notes/Report: Glucose 77 70-99 mg/dL BUN 11 6-20 mg/dL Creatinine 0.93 0.57-1.00 mg/dL eGFR 81 >59 mL/min/1.73 BUN/Creatinine Ratio 12 9-23 Sodium 139 134-144 mmol/L Potassium 4.9 3.5-5.2 mmol/L Chloride 105 96-106 mmol/L Carbon Dioxide, Total 18 20-29 mmol/L Calcium 9.8 8.7-10.2 mg/dL Protein, Total 7.2 6.0-8.5 g/dL Albumin 4.2 3.9-4.9 g/dL Globulin, Total 3.0 1.5-4.5 g/dL Bilirubin, Total <0.2 0.0-1.2 mg/dL Alkaline Phosphatase 49 44-121 IU/L AST (SGOT) 22 0-40 IU/L ALT (SGPT) 22 0-32 IU/L LP+Non-HDL Cholesterol-40251 5 Reviewed date:04/26/2025 11:37:02 AM Interpretation: Performing Lab:[facility], [address] [place] [address], Phone - [phone], Director - MDJodry Notes/Report: Cholesterol, Total 175 100-199 mg/dL Triglycerides 125 0-149 mg/dL HDL Cholesterol 42 >39 mg/dL VLDL Cholesterol Bubba 22 5-40 mg/dL LDL Chol Calc (NIH) 111 0-99 mg/dL Non-HDL Cholesterol 133 0-129 mg/dL TSH reflex to [id number] Reviewed date:04/26/2025 11:37:02 AM Interpretation: Performing Lab:[facility], [address] [place] [address], Phone - [phone], Director - Seniadry Notes/Report: TSH 1.430 0.450-4.500 uIU/mL Respiratory Panel w/ SARS-Co [id number] Reviewed date:06/28/2024 10:57:23 AM Interpretation: Performing Lab:[facility] [place], [address] [place] [address], Phone - [phone], Director - Natachay Notes/Report: Clinical Information:SRC: Adenovirus Not Detected Not [...] Reviewed date:06/28/2024 10:57:23 AM Interpretation: Performing Lab:[facility], [address], [place], Phone - [phone], Director - Blaise Notes/Report: Clinical Information:SRC: Ultrasound: Transvaginal Pel colby Sono Reviewed date:10/13/2024 03:30:22 PM Interpretation: Performing Lab: Notes/Report: Reason For Referral Reason Can we refer to Francia SOMERS - any provider for eval for fibroids and thick endometrial lining faxed Diagnosis 1 Leiomyoma of uterus, unspecified (D25.9) Referral Organization Beata OGLESBY Referring Provider First Name Velma Referring Provider Last Name Bryan Referring Provider Speciality Nurse Prac titioner Referred Provider Specialty Experimental Rocket 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 Ins Referral completed. Referral Priority Routine Medications Medication SIG (Take, Route, Fr equency, Duration) Notes Start Date End Date Status Zepbound 7.5 MG/0.5ML 0.5 mL Subcutaneou s weekly; Duration: 30 days 07/18/2025 Active FLUoxetine HCl 10 MG 1 capsule Orally On ce a day; Duration: 30 days 04/25/2025 Active LORazepam 0.5 MG 1 tablet at as neede d for flying fear Orally Once a day; Duration: 7 days 04/25/2025 Active Zepbound 7.5 MG/0.5ML INJECT 1 PEN SUBCU TANEOUSLY ONCE A WEEK; Duration: 28 Active Valtrex 1 GM 2 Tablets Orally Twi ce a day; Duration: 1 days Active Immunizations Vaccine Route Administration Date Status Comme nts [id number] Vaccine Unknown 07/26/2021 Administere d [id number]-73-Ewelorn Vaccine Unknown 08/23/2021 Administere d *Tdap Unknown [...] Status Risk Notes Problem Vitamin D deficiency (81544249) Vitamin D deficiency, unspecified (E55.9) Active confirmed Problem Mixed hyperlipidemia (055337353) Mixed hyperlipidemia (E78.2) Active confirmed Problem Tobacco user (804488400) Nicotine dependence, cigarettes, uncomplicated (F17.210) Active confirmed Problem Major depression, single episode, in complete remission (65502983) Major depressive disorder, single episode, in full remission (F32.5) Active confirmed Problem Fear of flying (712644037) Fear of flying (F40.243) Active confirmed Problem Generalized anxiety disorder (94756742) Generalized anxiety disorder (F41.1) Active confirmed Problem Cramp in lower leg associated with rest (078217588) Sleep related leg cramps (G47.62) Active confirmed Problem Endometriosis of uterus (14219698) Endometriosis of uterus (N80.0) Active confirmed Problem Intermenstrual bleeding - irregular (56599897) Excessive and frequent menstruation with irregular cycle (N92.1) Active confirmed Problem Paresthesia (finding) (14396032) Paresthesia of skin (R20.2) Active confirmed Problem Premenstrual dysphoric disorder (538251) Premenstrual dysphoric disorder (F32.81) Active confirmed Problem Body mass index 30.00 to 34.99 (941928626112245) Body mass index [BMI] 33.0-33.9, adult (Z68.33) Active confirmed Vital Signs Heart Rate 72 /min 04/25/2025 Temperature 96.5 degrees Fahrenheit 04/25/2025 Blood pressure diastolic 66 mm Hg 04/25/2025 Oximetry 98 % 04/25/2025 Height 68 in 04/25/2025 Blood pressure systolic 116 mm Hg 04/25/2025 Weight 193 lbs 04/25/2025 BMI 29.34 kg/m2 04/25/2025 Encounters Encounter Location Date Provider Diagnosis Beata Terrell MD [address] [id number] 06/23/2024 Velma Adams Acute upper respirat ory infection, unspecified J06.9 and Postnasal drip R09.82 Beata Terrell MD [address] [id number] 07/22/2024 Velma Adams Body mass index [BMI ] 33.0-33.9, adult Z68.33 ; Excessive and frequent menstruation with irregular cycle N92.1 ; Nicotine dependence, cigarettes, uncomplicated F17.210 ; Major depressive disorder, single episode, in full remission F32.5 and Generalized anxiety disorder F41.1 Beata Terrell MD [address] [id number] 12/07/2024 Velma Adams Excessive and freque nt menstruation with irregular cycle N92.1 ; Major depressive disorder, single episode, in full remission F32.5 ; Generalized anxiety disorder F41.1 ; Endometriosis of uterus N80.0 and Mixed hyperlipidemia E78.2 Beata Terrell MD [address] [id number] 03/14/2025 Velma Adams Excessive and freque nt menstruation with irregular cycle N92.1 ; Major depressive disorder, single episode, in full remission F32.5 ; Generalized anxiety disorder F41.1 ; Endometriosis of uterus N80.0 ; Mixed hyperlipidemia E78.2 ; Body mass index [BMI] 28.0-28.9, adult Z68.28 and Drug induced constipation K59.03 Beata Terrell MD [address] [id number] 04/25/2025 Velma Adams Encounter for genera l adult medical examination without abnormal findings Z00.00 ; Mixed hyperlipidemia E78.2 ; Major depressive disorder, single episode, in full remission F32.5 ; Generalized anxiety disorder F41.1 ; Excessive and frequent menstruation with irregular cycle N92.1 ; Endometriosis of uterus N80.0 ; Premenstrual dysphoric disorder F32.81 ; Fear of flying F40.243 ; Nicotine dependence, cigarettes, uncomplicated F17.210 ; Body mass index [BMI] 28.0-28.9, adult Z68.28 ; Vitamin D deficiency, unspecified E55.9 ; Encounter for screening for cardiovascular disorders Z13.6 ; Encounter for immunization Z23 ; Encounter for antibody response examination Z01.84 ; Encounter for screening for other viral diseases Z11.59 ; Encounter for screening for malignant neoplasm of cervix Z12.4 and Encounter for screening examination for other mental health and behavioral disorders Z13.39 Beata Terrell MD [address] [id number] 06/10/2024 Velma Adams Body mass index [BMI ] 33.0-33.9, adult Z68.33 Beata Terrell MD [address] [id number] 06/23/2024 Velma Terrell MD [address] [id number] 06/28/2024 Velma Adams Beata Terrell MD [address] [id number] 10/11/2024 Velma Joyae Excessive and freque nt menstruation with irregular cycle N92.1 Beata Terrell MD [address] [id number] 10/13/2024 Velma Terrell MD [address] [id number] 11/22/2024 Velma Terrell MD [address] [id number] 12/08/2024 Velma Adams Beata Terrell MD [address] [place] [address] [id number] 02/28/2025 Velma Adams Leiomyoma of uterus, unspecified D25.9 Beata Terrell MD [address] [id number] 03/21/2025 Velma Adams Beata Terrell MD [address] [id number] 04/26/2025 Velma Adams Beata Terrell MD [address] [id number] 04/26/2025 Velma Adams Beata Terrell MD [address] [id number] 05/02/2025 Velma Adams Beata Terrell MD [address] [id number] 05/19/2025 Velma Adams Body mass index [BMI ] 28.0-28.9, adult Z68.28 Beata Terrell MD [address] [id number] 05/30/2025 Velma Adams Beata Terrell MD [address] [id number] 06/21/2024 Velma Adams Body mass index [BMI ] 33.0-33.9, adult Z68.33 Beata Terrell MD [address] [id number] 06/21/2024 Velma Adams Beata Terrell MD [address] [id number] 06/21/2024 Velma Adams Beata Terrell MD [address] [id number] 07/07/2024 Velma Adams Body mass index [BMI ] 33.0-33.9, adult Z68.33 Beata Terrell MD [address] [id number] 08/02/2024 Velma Adams Beata Terrell MD [address] [id number] 08/03/2024 Velma Adams Acute maxillary sinusitis, unspecified J01.00 Beata Terrell MD [address] [id number] 08/04/2024 Velma Adams Beata Terrell MD [address] [id number] 08/23/2024 Velma Adams Body mass index [BMI ] 33.0-33.9, adult Z68.33 Beata Terrell MD [address] [id number] 09/23/2024 Velma Adams Body mass index [BMI ] 33.0-33.9, adult Z68.33 Beata Terrell MD [address] [id number] 09/23/2024 Velma Adams Beata Terrell MD [address] [id number] 12/09/2024 Velma Adams Beata Terrell MD [address] [id number] 02/01/2025 Velma Adams Beata Terrell MD [address] [id number] 03/15/2025 Velma Terrell MD [address] [id number] 03/19/2025 Velma Adams Beata Terrell MD [address] [id number] 03/21/2025 Velma Adams Beata Terrell MD [address] [id number] 03/22/2025 Velmashad Adams Beata Terrell MD [address] [id number] 04/17/2025 Velma Adams Body mass index [BMI ] 28.0-28.9, adult Z68.28 Assessments Encounter Date Diagnosis (ICD Code) Assessment Notes Treatment Notes Treatment Clinical Notes Section Notes 06/10/2024 Body mass index [BMI] 33.0-33.9, adult [...] a referral to the endometriosis specialist in [place] and patient agreeable to move forward with [...] patient states she has not heard from [facility]. Provided patient with this contact information as patient would benefit from consultation and further plan for these findings 04/17/2025 Body mass index [BMI] 28.0-28.9, adult (ICD-10 - Z68.28) 04/25/2025 Mixed hyperlipidemia (ICD-10 - E78.2) Patient with [...] further evaluation to assess current cardiovascular risk 04/25/2025 Encounter for general adult medical examination without abnormal findings (ICD-10 - Z00.00) General healthcare up-to-date. Will obtain updated routine labs. Plan will be for annual in 1 year 05/19/2025 Body mass index [BMI] 28.0-28.9, adult (ICD-10 - Z68.28) 09/23/2024 Body mass index [BMI] 33.0-33.9, adult (ICD-10 - Z68.33) 04/25/2025 Major depressive disorder, single episode, in full remission (ICD-10 - F32.5) Stable and patient feels as though her depressive symptoms have improved and are well-controlled at this time 03/14/2025 Generalized anxiety disorder (ICD-10 - F41.1) [...] endometriosis. She is pending an appointment with [facility] for further evaluation. Discussed with patient that if [facility] is not able to assist in any further diagnosis or management, could consider referral to an endometriosis specialist either in [place] or [place] 04/25/2025 Generalized anxiety disorder (ICD-10 - F41.1) Patient admits to having increased anxiety and spent much time discussing medication options. Patient was offered propranolol but patient declined wanting to use propranolol as she is fearful of this being beta-aan. Spent much time discussing additional options and patient is agreeable to begin Prozac given her anxiety as well as worsening mood from ovulation until her periods begin.Patient to follow-up in 3 months to reassess, and she is aware to follow-up sooner should she have any negative side effects with starting Prozac 04/25/2025 Excessive and frequent menstruation with irregular cycle (ICD-10 - N92.1) Patient continues to track her cycles and does states she is continuing to have a regular menstrual cycles that are between every 4 weeks. Reviewed with patient her previous AMA level which was noted to be greater than 8 which does reveal high suspicion for PCOS diagnosis. Patient also underwent a transvaginal ultrasound and MRI with findings of a thicker endometrial lining and endometrial enhancement. Patient is seeing Dr. James next week for further evaluation and consultation given this MRI finding 03/14/2025 Mixed hyperlipidemia (ICD-10 - E78.2) Patient [...] regimen daily to further improve her constipation 04/25/2025 Endometriosis of uterus (ICD-10 - N80.0) Spent time discussing patient's elevated AMH level as well as irregular menstrual cycles and recent MRI findings of endometrial enhancements and mild endometrial hyperplasia. Patient is scheduled for a consultation with Dr. James to review MRI findings and determine next steps given these findings 04/25/2025 Premenstrual dysphoric disorder (ICD-10 - F32.81) Patient admits to increased anxiety and mood changes from ovulation to her menstrual cycle. Discussed with patient that there may be a component of PMDD and patient to begin Prozac use for further management of her mood changes that are cyclical as well as her increased anxiety. Discussed with patient that she has the option of taking Prozac daily or she could begin taking Prozac from ovulation until the start of her menstrual cycle to further improve her mood disturbances. Plan will be for follow-up in 3 months to reassess send patient aware to follow-up sooner should she have any negative side effects since starting Prozac 03/14/2025 Drug induced constipation (ICD-10 - K59.03) [...] in the next 2 to 3 days 04/25/2025 Fear of flying (ICD-10 - F40.243) Patient is traveling in the coming weeks and is requesting Ativan to help with her fear of flying. Short course of Ativan provided for her upcoming travel 04/25/2025 Nicotine dependence, cigarettes, uncomplicated (ICD-10 - F17.210) Patient continues to smoke half a pack or less daily. Patient has used nicotine patches in the past and states that her and her are trying to decrease cigarette use with the hopes to stop smoking altogether. Patient aware to contact the office should she want any additional courts to help her quit smoking 04/25/2025 Body mass index [BMI] 28.0-28.9, adult (ICD-10 - Z68.28) Patient continues to work on weight loss and lowering her BMI with diet, exercise, and Zepbound use. Patient states her constipation and indigestion have resolved since starting Zepbound. Patient to follow up in 3 months to reasess BMI and determine if increasing Zepbound is warranted 04/25/2025 Vitamin D deficiency, unspecified (ICD-10 - E55.9) Will check level to verify that there is no deficiency 04/25/2025 Encounter for screening for cardiovascular disorders (ICD-10 - Z13.6) Blood pressure stable. Will check for comorbidity of hyperlipidemia and hyperglycemia to further assess risk 04/25/2025 Encounter for immunization (ICD-10 - Z23) Vaccines up-to-date 04/25/2025 Encounter for antibody response examination (ICD-10 - Z01.84) Titers have been checked in the past and there is immunity to rubeola 04/25/2025 Encounter for screening for other viral diseases (ICD-10 - Z11.59) Will screen for hepatitis C as per general recommendation 04/25/2025 Encounter for screening for malignant neoplasm of cervix (ICD-10 - Z12.4) Patient completed her pap smear in 2022 with normal findings. Patient aware that a repeat pap smear will be completed in 2025 to ensure she remains up to date with her cervical cancer screenings 04/25/2025 Encounter for screening examination for other mental health and behavioral disorders (ICD-10 - Z13.39) PHQ score reviewed and no further interventions warranted. Patient is agreeable to being treatment for increase anxiety and will f/u in 3 months, or sooner, to ensure improvement since starting medications 04/25/2025 Other Plan Of Treatment Pending Test Test Name Order Date 25OH VITAMIN D 12/05/2022 COMPLETE BLOOD COUNT 12/05/2022 COMPREHENSIVE METABOLIC PANEL 12/05/2022 FERRITIN 12/05/2022 HEMOGLOBIN A1C 12/05/2022 LIPID PANEL 12/05/2022 TSH WITH REFLEX TO FT4 12/05/2022 VITAMIN B12 12/05/2022 Next Appt Details Provider Name:Velma Adams , 08/02/2025 09:00:00 AM, [address] [place] [address], [phone], Provider Name:Velam Adams , 05/01/2026 08:30:00 AM, [address] [place] [address], [phone], Insurance Providers Payer Name Payer Address Payer Phone Subscriber Number Group Number Insured Name Patient Relationship to Insured Coverage Start Date Coverage End Date BC OF [facility] [address] [place] [address] [id number] Eden Charles Self - patient is the insured Medical (General) History Medical History History ICD Code HPV - colposcopy (2010) - normal paps si nce procedure HSV Surgical History Surgery Date(Month/Year) Leep procedure LP (for severe headache) Migraines (as a teenager) Hospitalization History Reason Date(Month/Year)
--- NOTE | ~2025-06-29 | US_ITS ---
Procedure: Endovascular ablation of the left greater saphenous vein with VenaSeal HISTORY: Varicose veins INDICATIONS: Symptomatically varicose veins bilateral lower extremity. Symptoms include pain, swelling, PROCEDURE/FINDINGS: Informed consent was obtained following a discussion of the risks and benefits of the procedure with the patient. The patient was placed supine on the ultrasound procedure table. Preliminary ultrasound demonstrates dilated refluxing left greater saphenous vein. A site was marked on the left medial leg . The left leg was sterilely prepped and draped. Following the administration of 1% lidocaine for local anesthesia, the greater saphenous vein was accessed with a 21-gauge micropuncture needle under direct ultrasound guidance. The needle was exchanged for the transitional dilator over a 0.018 guidewire. A 0.035 guidewire was then advanced to the saphenofemoral junction. The VenaSeal sheath was then inserted over the wire and positioned 10 cm from the saphenofemoral junction. VenaSeal glue was then delivered along the length of the greater saphenous vein while retracting the catheter with compression at the saphenofemoral junction to prevent glue from traveling forward. The delivery device was removed and hemostasis was achieved with manual compression. Postprocedure ultrasound demonstrates successful occlusion of the treated veins with widely patent and compressible saphenofemoral junction. Patient tolerated the procedure well without immediate complication. US/US venaseal vein closure IMPRESSION: Successful VenaSeal ablation of the left greater saphenous vein. Follow-up ultrasound in 5-7 days as scheduled Electronically signed by: Manuel Mccabe MD 07/14/2025 02:40 PM EDT
== END ==
LOC: HO.US 12:52
PROVIDERS: PCP Nurse Practitioner Family; Visit Provider Student in an Organized Health Care Education/Training Program
DX: I83.813 Varicose veins of bilateral lower extremities with pain (principal); I83.893 Varicose veins of bilateral lower extremities with other complications
CPT/HCPCS: 36470; 36482; C1894

== ENCOUNTER → 2025-06-29 13:00 | Outpatient (BNV) | payer BC, SELFPAY | PROVIDERS: PCP Nurse Practitioner Family; Visit Provider Student in an Organized Health Care Education/Training Program | DX: I83.12 Varicose veins of left lower extremity with inflammation (principal) | CPT/HCPCS: 36482 ==

== ENCOUNTER → 2025-07-04 15:30 | Outpatient (BNV) | payer BC, SELFPAY | PROVIDERS: PCP Nurse Practitioner Family; Visit Provider Radiology Diagnostic Radiology | DX: I83.812 Varicose veins of left lower extremity with pain (principal) | CPT/HCPCS: 93971 ==

== ENCOUNTER 2025-07-04 15:31 | Outpatient (REF) | payer BC, SELFPAY ==
--- NOTE | ~2025-07-04 | US_ITS ---
EXAMINATION: TRIPLEX SCANNING OF LEFT LOWER EXTREMITY; SUPERFICIAL ULTRASOUND WITH DOPPLER OF LEFT LOWER EXTREMITY CLINICAL INFORMATION: Status post Venaseal of the left great saphenous vein COMPARISON: preprocedure studies. TECHNIQUE: Color flow triplex imaging and compression Doppler were performed as well as superficial ultrasound with Doppler. FINDINGS: LEFT LOWER EXTREMITY DEEP VENOUS SYSTEM: Respiratory variation, normal compression and augmented flow are noted throughout the lower extremity. The visualized common femoral vein, femoral vein, profunda femoral vein, popliteal vein and the calf veins show no evidence of deep venous thrombosis. There is no evidence of Sy's cyst. SUPERFICIAL VENOUS SYSTEM: The great saphenous vein is occluded from the access site to just before the saphenofemoral junction. There is no extension of thrombus into the deep system. US/US venous duplex LE IMPRESSION: 1. No evidence of DVT. 2. Excellent appearance status post ablation of the left great saphenous vein. Electronically signed by: Kit Sesay MD 07/04/2025 04:12 PM EDT
--- OUTSIDE RECORDS SUMMARY | 2025-07-04 16:00 | XMS_ITS ---
Author Name [facility] Organization Unknown Care Team Organization Name Specialty Phone Email Start Date End Da smith [facility] Yoly Almendarez [facility] 05/22/2023 024
--- OUTSIDE RECORDS SUMMARY | 2025-07-04 16:00 | XMS_ITS | Patient Health Record ---
Author Organization Beata Terrell MD Address [address] [place] [id number] Care Team Providers Care Contact Representative Name Role Phone Velma Adams Primary Care Provider BEATA TERRELL MD Unavailable Unavailable Allergies No Known Allergies Results Component Value Reference Range Notes US Pelvic Transvaginal Reviewed date:10/13/2024 02:17:33 PM [...] arcuate uterine configuration. Otherwise unremarkable uterus. WSN: [id number] Ordering Physician: Velma Adams Dictated By: Amador Davalos MD US Pelvic Transabdominal Reviewed date:10/13/2024 02:17:33 PM [...] arcuate uterine configuration. Otherwise unremarkable uterus. WSN: [id number] Ordering Physician: Velma Adams Dictated By: Amador Davalos MD TSH reflex to [id number] Reviewed date:04/26/2025 11:37:02 AM Interpretation: Performing Lab:[facility], [address] [place] [address], Phone - [phone], Director - Blaise Notes/Report: TSH 1.430 0.450-4.500 uIU/mL LP+Non-HDL Cholesterol-15982 5 Reviewed date:04/26/2025 11:37:02 AM Interpretation: Performing Lab:[facility], [address] [place] [address], Phone - [phone], Director - Natachay Notes/Report: Cholesterol, Total 175 100-199 mg/dL Triglycerides 125 0-149 mg/dL HDL Cholesterol 42 >39 mg/dL VLDL Cholesterol Bubba 22 5-40 mg/dL LDL Chol Calc ([facility]) 111 0-99 mg/dL Non-HDL Cholesterol 133 0-129 mg/dL Comp. Metabolic Panel (14)-3 Reviewed date:04/26/2025 11:37:02 AM Interpretation: Performing Lab:[facility], [address] [place] [address], Phone - [phone], Director - Blaise Notes/Report: Glucose 77 70-99 mg/dL BUN 11 [...] 0-40 IU/L ALT (SGPT) 22 0-32 IU/L HCV Antibody RFX to Quant PC [id number] Reviewed date:04/26/2025 11:37:02 AM Interpretation: Performing Lab:[facility], [address] [place] [address], Phone - [phone], Director - Blaise Notes/Report: HCV Ab Non Reactive Non Reactive Interpretation: Not infected with HCV unless early or acute infection is suspected (which may be delayed in an immunocompromised individual), or other evidence exists to indicate HCV infection. Vitamin D, 63-Ojstglf-[id number] Reviewed date:04/26/2025 11:37:01 AM Interpretation: Performing Lab:[facility], [address] [place] [address], [place], Phone - [phone], Director - Blaise Notes/Report: Vitamin D, 25-Hydroxy 21.2 30.0-100.0 ng/mL Vitamin D deficiency has been defined by the [place] of [employer] and an Endocrine Society practice guideline as a level of serum 25-OH vitamin D less than 20 ng/mL (1,2). The Endocrine Society went on to further define vitamin D insufficiency as a level between 21 and 29 ng/mL (2). 1. IOM ([place] [employer]). 2010. Dietary reference intakes for calcium and D. [place]: The National Academies Press. 2. Ritchie MF, Jimbo NC, Kathleen SAINI, et al. Evaluation, treatment, and prevention of vitamin D deficiency: an Endocrine Society clinical practice guideline. JCEM. 2010; 96(7):1911-30. CBC With Differential/Platel et-[id number] Reviewed date:04/26/2025 11:37:01 AM Interpretation: Performing Lab:[facility] [place], [address] [place] [address], Phone - [phone], Director - Blaise Notes/Report: WBC 6.8 3.4-10.8 x10E3/uL RBC 4.36 [...] % Immature Grans (Abs) 0.0 0.0-0.1 x10E3/uL Urinalysis, Complete-[id number] Reviewed date:04/26/2025 11:37:01 AM Interpretation: Performing Lab:[facility] [place], [address] [place] [address], Phone - [phone], Director - Blaise Notes/Report: Specific [place] 1.020 1.005-1.030 pH 5.5 5.0-7.5 Urine-Color Yellow [...] seen /lpf Bacteria None seen None seen/Few MR Pelvis W WO Reviewed date:02/28/2025 05:02:15 PM Interpretation: Performing Lab: Notes/Report: LP+Non-HDL Cholesterol-47709 5 Reviewed date:12/08/2024 08:28:40 PM Interpretation: Performing Lab:[facility], [facility], [place], Phone - [phone], Director [facility] Notes/Report: Cholesterol, Total 183 100-199 mg/dL Triglycerides 109 0-149 mg/dL HDL Cholesterol 38 >39 mg/dL VLDL Cholesterol Bubba 20 5-40 mg/dL LDL Chol Calc (NIH) 125 0-99 mg/dL Non-HDL Cholesterol 145 0-129 mg/dL Comp. Metabolic Panel (14)-3 Reviewed date:12/08/2024 08:28:40 PM Interpretation: Performing Lab:[facility], [facility], [place], Phone - [phone], Director [facility] Notes/Report: Glucose 76 70-99 mg/dL BUN 11 [...] 0-40 IU/L ALT (SGPT) 16 0-32 IU/L CBC With Differential/Platel et-[id number] Reviewed date:12/08/2024 08:28:40 PM Interpretation: Performing Lab:[facility], [address], [place], Phone - [phone], Director - Blaise Notes/Report: WBC 8.6 3.4-10.8 [...] % Immature Grans (Abs) 0.0 0.0-0.1 x10E3/uL Ultrasound: Transvaginal Pel colby Sono Reviewed date:10/13/2024 03:30:22 PM Interpretation: Performing Lab: Notes/Report: Reason For Referral Reason Can we refer to Francia SOMERS - any provider for eval for fibroids and thick endometrial lining faxed Diagnosis 1 Leiomyoma of uterus, unspecified (D25.9) Referral Organization [facility] Referring Provider First Name Velma Referring Provider Last Name Bryan Referring Provider Speciality Nurse Prac titioner Referred Provider Specialty Dental Laboratory Technician General Notes Asya ROSEBNERG 02/15 04:09:27 PM >completed [facility] Referral form and faxed, Asya ROSENBERG 05/03/2025 08:29:55 AM >Patient booked with Dr James for today. Ins Referral completed. Referral Priority Routine Medications Medication SIG (Take, Route, Fr equency, Duration) Notes Start Date End Date Status FLUoxetine HCl 10 MG 1 capsule Orally On ce a day; Duration: 30 days 04/25/2025 Active LORazepam 0.5 MG 1 tablet at as neede d for flying fear Orally Once a day; Duration: 7 days 04/25/2025 Active Zepbound 7.5 MG/0.5ML INJECT 1 PEN SUBCU TANEOUSLY ONCE A WEEK; Duration: 28 Active Zepbound 10 MG/0.5ML 0.5 mL Subcutaneous weekly; Duration: 30 days 08/20/2025 Active Valtrex 1 GM 2 Tablets Orally Twi ce a day; Duration: 1 days Active Immunizations Vaccine Route Administration Date Status Comme nts *Tdap Unknown 03/29/2021 Administered [id number] Vaccine Unknown 07/26/2021 Administere d [id number] Vaccine Unknown 08/23/2021 Administere d Influenza-Afluria (IIV4) Unknown 11/22/2020 Administere d Influenza-Afluria [...] Status Risk Notes Problem Vitamin D deficiency (46965475) Vitamin D deficiency, unspecified (E55.9) Active confirmed Problem Mixed hyperlipidemia (575210398) Mixed hyperlipidemia (E78.2) Active confirmed Problem Tobacco user (628441109) Nicotine dependence, cigarettes, uncomplicated (F17.210) Active confirmed Problem Major depression, single episode, in complete remission (28960301) Major depressive disorder, single episode, in full remission (F32.5) Active confirmed Problem Fear of flying (434126636) Fear of flying (F40.243) Active confirmed Problem Generalized anxiety disorder (48095682) Generalized anxiety disorder (F41.1) Active confirmed Problem Cramp in lower leg associated with rest (251438539) Sleep related leg cramps (G47.62) Active confirmed Problem Endometriosis of uterus (55115642) Endometriosis of uterus (N80.0) Active confirmed Problem Intermenstrual bleeding - irregular (77882107) Excessive and frequent menstruation with irregular cycle (N92.1) Active confirmed Problem Paresthesia (finding) (28539644) Paresthesia of skin (R20.2) Active confirmed Problem Premenstrual dysphoric disorder (020379) Premenstrual dysphoric disorder (F32.81) Active confirmed Problem Body mass index 30.00 to 34.99 (203523278908918) Body mass index [BMI] 33.0-33.9, adult (Z68.33) Active confirmed Vital Signs Heart Rate 72 /min 04/25/2025 Temperature 96.5 degrees Fahrenheit 04/25/2025 Oximetry 98 % 04/25/2025 Blood pressure diastolic 66 mm Hg 04/25/2025 Height 68 in 04/25/2025 Blood pressure systolic 116 mm Hg 04/25/2025 Weight 193 lbs 04/25/2025 BMI 29.34 kg/m2 04/25/2025 Encounters Encounter Location Date Provider Diagnosis Beata Terrell MD [address] [id number] 10/11/2024 Velma Adams Excessive and freque nt menstruation with irregular cycle N92.1 Beata Terrell MD [address] [id number] 10/13/2024 Velma Adams Beata Terrell MD [address] [id number] 11/22/2024 Velmashad Joyae Beata Terrell MD [address] [id number] 12/08/2024 Velma Adams Beata Terrell MD [address] [id number] 02/28/2025 Velma Adams Leiomyoma of uterus, unspecified D25.9 Beata Terrell MD [address] [id number] 03/21/2025 Velma Adams Beata Terrell MD [address] [id number] 04/26/2025 Velma Adams Beata Terrell MD [address] [id number] 04/26/2025 Velma Adams Beata Terrell MD [address] [id number] 05/02/2025 Velma Adams Beata Terrell MD [address] [id number] 05/19/2025 Velma Adams Body mass index [BMI ] 28.0-28.9, adult Z68.28 Beata Terrell MD [address] [id number] 05/30/2025 Velma Adams Beata Terrell MD [address] [id number] 07/07/2024 Velma Adams Body mass index [BMI ] 33.0-33.9, adult Z68.33 Beata Terrell MD [address] [id number] 08/02/2024 Velma Adams Beata Terrell MD [address] [id number] 08/03/2024 Velma Adams Acute maxillary sinusitis, unspecified J01.00 Beata Terrell MD [address] [id number] 08/04/2024 Velma Adams Beata Terrell MD [address] [id number] 08/23/2024 Velma Adams Body mass index [BMI ] 33.0-33.9, adult Z68.33 Beata Terrell MD [address] [id number] 09/23/2024 Velma Adams Body mass index [BMI ] 33.0-33.9, adult Z68.33 Beata Terrell MD [address] [id number] 09/23/2024 Velma Adams Beata Terrell MD [address] [id number] 12/09/2024 Velmashad Joyasamanta Terrell MD [address] [id number] 02/01/2025 Velmashad Adams Beata Terrell MD [address] [id number] 03/15/2025 Velmashad Joyasamanta Terrell MD [address] [id number] 03/19/2025 Velma Adams Beata Terrell MD [address] [id number] 03/21/2025 Velmashad Adams Beata Terrell MD [address] [id number] 03/22/2025 Velma Adams Beata Terrell MD [address] [id number] 04/17/2025 Velma Adams Body mass index [BMI ] 28.0-28.9, adult Z68.28 Beata Terrell MD [address] [id number] 06/21/2025 Velma Adams Body mass index [BMI ] 28.0-28.9, adult Z68.28 Beata Terrell MD [address] [id number] 04/25/2025 Velma Adams Encounter for genera l [...] and behavioral disorders Z13.39 Beata Terrell MD [address] [id number] 07/22/2024 Velma Adams Body mass index [BMI ] 33.0-33.9, adult Z68.33 ; Excessive and frequent menstruation with irregular cycle N92.1 ; Nicotine dependence, cigarettes, uncomplicated F17.210 ; Major depressive disorder, single episode, in full remission F32.5 and Generalized anxiety disorder F41.1 Beata Terrell MD [address] [id number] 12/07/2024 Velma Adams Excessive and freque nt menstruation with irregular cycle N92.1 ; Major depressive disorder, single episode, in full remission F32.5 ; Generalized anxiety disorder F41.1 ; Endometriosis of uterus N80.0 and Mixed hyperlipidemia E78.2 Beata Terrell MD [address] [id number] 03/14/2025 Velma Adams Excessive and freque nt [...] Treatment Notes Treatment Clinical Notes Section Notes 07/07/2024 Body mass index [BMI] 33.0-33.9, adult [...] a referral to the endometriosis specialist in [place] and patient agreeable to move forward with [...] patient states she has not heard from [facility]. Provided patient with this contact information as [...] index [BMI] 28.0-28.9, adult (ICD-10 - Z68.28) 06/21/2025 Body mass index [BMI] 28.0-28.9, adult (ICD-10 - Z68.28) 04/25/2025 Major depressive disorder, single episode, in [...] endometriosis. She is pending an appointment with [facility] for further evaluation. Discussed with patient that if [facility] is not able to assist in any further diagnosis or management, could consider referral to an endometriosis specialist either in [place] or [place] 04/25/2025 Generalized anxiety disorder (ICD-10 - F41.1) Patient admits to having increased anxiety and spent much time discussing medication options. Patient was offered propranolol but patient declined wanting to use propranolol as she is fearful of this being beta-ana. Spent much time discussing additional options and [...] Provider Name:Velma Adams , 08/02/2025 09:00:00 AM, [address] [place] [address], [phone], Provider Name:Velma Adams , 05/01/2026 08:30:00 AM, [address] [place] [address], [address], [phone], Insurance Providers Payer Name Payer Address Payer Phone Subscriber Number Group Number Insured Name Patient Relationship to Insured Coverage Start Date Coverage End Date BC OF [facility] [address] [place] [address] [phone] [id number] Eden Charles Self - patient is the insured Medical (General) History Medical History History ICD Code HPV - colposcopy (2010) - normal paps si nce procedure HSV Surgical History Surgery Date(Month/Year) Leep procedure LP (for severe headache) Migraines (as a teenager) Hospitalization History Reason Date(Month/Year)
--- OUTSIDE RECORDS SUMMARY | 2025-07-04 16:01 | XMS_ITS | Patient Health Record ---
[facility] Organization [facility] Address [address] [place] [address] Care Team Providers Care Lump Room Supervisor Name Role Phone Sonja Camacho Primary Care Provide r Unavailable Corbin, Robert Unavailable [phone] Reason For Referral No Information Medications Medication [...] Status W/U Status Risk Notes Problem Onychomycosis (744839846) Onychomycosis (110.1) Active confirmed Problem Pain in Limb (729.5) Active confirmed Plan Of Treatment No Information Insurance Providers Payer Name Payer Address Payer Phone Subscriber Number Group Number Insured Name Patient Relationship to Insured Coverage Start Date Coverage End Date [employer] [address] [place] [phone] [id number] Kody Charles Child - Insured has Financial Responsibility Medical (General) History Medical History History ICD Code anxiety back, hip, knee pain broken bones headaches/migraines chicken pox Surgical History Surgery Date(Month/Year) tonsillectomy and adenoidectomy 1993 wisdom teeth extraction 04/2013
== END 2025-07-04 15:32 | disposition home or self-care (01) ==
LOC: HO.US 15:31
PROVIDERS: PCP Nurse Practitioner Family; Visit Provider Student in an Organized Health Care Education/Training Program
DX: I87.2 Venous insufficiency (chronic) (peripheral) (principal)
CPT/HCPCS: 93971

== ENCOUNTER 2025-11-14 08:48 | Outpatient (AMB) | payer BC, SELFPAY ==
--- NOTE | 2025-11-14 08:51 | A.SPINEOV_ITS ---
Vital Signs 11/14/25 09:03 Height 5 ft 9 in Weight 190 lb BMI 28.1 Intake Visit Reasons: lumbar radiculopathy Intake Note: Ms. Charles is here today c/o low back pain that radiates down to the hips and legs. MRI done at [facility]. Manager Wind Required: No Allergies No Known Allergies (No Known Allergies*) Allergy (Verified 11/14/25 09:04) Physical Exam Vital Signs: BMI result Body Mass Index 28.1 Assessment & Plan Assessment & Plan (1) Lumbar degenerative disc disease: Code(s): M51.369 - Other intervertebral disc degeneration, lumbar region without mention of lumbar back pain or lower extremity pain Category: Medical Plan Dear Velma, Thank you for referring Mrs Charles to our office today. This is a very nice 39-year-old female presents to the office today for evaluation of intermittent flare-ups of low back pain, bilateral lower extremity pain which has been going on now for about 8 years. The patient reports that about every 4 months or so she will have a flare-up that will be very painful located in her lumbar spine radiate down her legs, generally worse on the right. It will incapacitated her for a number of weeks. She generally will treat it with anti-inflammatories, light stretching, heat, ice etc.. She gets through it and then she will be back to her normal self. She did do physical therapy when the whole problem started about 8 years ago but has not consistently participated in doing the exercises since that time. On a day-to-day basis she is not experiencing much in the way of regular pain, it really only during the flare-ups. She had an MRI done showing degenerative changes and came to see us for an evaluation. PMH: She has borderline high cholesterol which seems to be going down as she has been losing weight lately, history of anxiety. No other major systemic disease. She has never had surgery. Social hx: Smokes about half a pack a cigarettes a day, occasional alcohol, no recreational drugs Medications: Propranolol, Zepbound Allergies: None Physical exam: Awake alert oriented no acute distress, strength normal, reflexes slightly diminished at the patella, normal at the Achilles. Imaging review: Lumbar MRI done at the [facility] shows normal alignment, however, she does have type 3 Modic endplate changes at L4-5 with disc degeneration and left-sided disc bulge compressing the left L5 nerve root. There are some other very mild changes in her lumbar spine but nothing of any meaningful or significant concern. Impression: 39-year-old female with intermittent episodes of low back pain and bilateral lower extremity pain that flare-up 3 to 4 times a year, I suspect related to the L4-5 issue where she has disc degeneration and Modic endplate changes. She seems to be able to get herself out of them fairly reliably and then she is back to normal without any day-to-day pain. At this point I do not think this is something we should pursue surgically because it is not a daily discomfort that is debilitating. We did talk about the fact that she is predisposed to having these issues because of the accelerated degeneration in the disc, and that things like weight loss, flexibility, core strength, and trying to keep up with doing the physical therapy exercises terminal makeup operator will hopefully keep her out of the operating room. I left the door open for her to come back and see us if things start to become more frequent with the flare-ups or that it does not go away. Because she is so young, we will have a high threshold for surgery. Thank you for allowing us to care for your patient. The total time spent with this visit with this patient was 45 minutes reviewing history, physical exam, lumbar imaging review, and implementation of treatment plan or further diagnostic testing Manuel Hernandez MD,PhD [facility] Coding Level of Care Code New Pt Level 4 (67184) Diagnoses Lumbar degenerative disc disease M51.369
--- OUTSIDE RECORDS SUMMARY | 2025-11-14 08:54 | XMS_ITS | Patient Health Record ---
Author Organization [facility] Address [address] [place] [address] Care Team Providers Care Hand Driller Name Role Phone Sonja Camacho Primary Care Provide r Unavailable Corbin, Robert Unavailable [phone] Reason For Referral No Information Medications Medication [...] Status W/U Status Risk Notes Problem Onychomycosis (799501816) Onychomycosis (110.1) Active confirmed Problem Pain in limb (97903409) Pain in Limb (729.5) Active confirmed Plan Of Treatment No Information Insurance Providers Payer Name Payer Address Payer Phone Subscriber Number Group Number Insured Name Patient Relationship to Insured Coverage Start Date Coverage End Date [employer] [address] [place], [place] [phone] [id number] Kody Charles Child - Insured has Financial Responsibility Medical (General) History Medical History History ICD Code anxiety back, hip, knee pain broken bones headaches/migraines chicken pox Surgical History Surgery Date(Month/Year) tonsillectomy and adenoidectomy 1993 wisdom teeth extraction 04/2013
--- OUTSIDE RECORDS SUMMARY | 2025-11-14 08:54 | XMS_ITS | Patient Health Record ---
Author Organization Beata Terrell MD Address [address] [place] [address] [phone] Care Team Providers Care Job Developer Name Role Phone AdamsVelma Primary Care Provider BEATA TERRELL MD Unavailable Unavailable Allergies No Known Allergies Results Component Value Reference Range Notes CBC With Differential/Platel et-[id number] Reviewed date:12/08/2024 08:28:40 PM Interpretation: Performing Lab:[facility] [place], [address] [place] [address], [place], Phone - [phone], Director - Blaise Notes/Report: WBC 8.6 3.4-10.8 [...] 0.0 0.0-0.1 x10E3/uL Comp. Metabolic Panel (14)-3 [id number] Reviewed date:12/08/2024 08:28:40 PM Interpretation: Performing Lab:[facility], [address] [place] [address], Phone - [phone], Director - Blaise Notes/Report: Glucose 76 70-99 [...] IU/L ALT (SGPT) 16 0-32 IU/L LP+Non-HDL Cholesterol-56160 5 Reviewed date:12/08/2024 08:28:40 PM Interpretation: Performing Lab:[facility], [address] [place] [address], Phone - [phone], Director - Blaise Notes/Report: Cholesterol, Total 183 100-199 mg/dL Triglycerides 109 0-149 mg/dL HDL Cholesterol 38 >39 mg/dL VLDL Cholesterol Bubba 20 5-40 mg/dL LDL Chol Calc (NIH) 125 0-99 mg/dL Non-HDL Cholesterol 145 0-129 mg/dL MR Pelvis W WO Reviewed date:02/28/2025 05:02:15 PM Interpretation: Performing Lab: Notes/Report: Urinalysis, Complete-[id number] Reviewed date:04/26/2025 11:37:01 AM Interpretation: Performing Lab:[facility], [address] [place] [address], Phone - [phone], Director - Blaise Notes/Report: Specific [place] 1.020 1.005-1.030 pH 5.5 5.0-7.5 Urine-Color Yellow [...] None seen None seen/Few CBC With Differential/Platel et-[id number] Reviewed date:04/26/2025 11:37:01 AM Interpretation: Performing Lab:[facility], [address] [place] [address], [place], Phone - [phone], Director - Blaise Notes/Report: WBC 6.8 3.4-10.8 [...] Grans (Abs) 0.0 0.0-0.1 x10E3/uL Vitamin D, 53-[id number] Reviewed date:04/26/2025 11:37:01 AM Interpretation: Performing Lab:[facility], [address] [place] [address], Phone - [phone], Director - Blaise Notes/Report: Vitamin D, 25-Hydroxy 21.2 30.0-100.0 ng/mL Vitamin D deficiency has been defined by the [place] of [employer] and an Endocrine Society practice guideline as a level of serum 25-OH vitamin D less than 20 ng/mL (1,2). The Endocrine Society went on to further define vitamin D insufficiency as a level between 21 and 29 ng/mL (2). 1. IOM ([place] of [employer]). 2010. Dietary reference intakes for calcium and D. [place]: The National [employer]Med[employer]era [employer] Press. 2. Ritchie MF, Jimbo NC, Kathleen SAINI, et al. Evaluation, treatment, and prevention of vitamin D deficiency: an Endocrine Society clinical practice guideline. JCEM. 2010; 96(7):1911-30. HCV Antibody RFX to Quant PC [id number] Reviewed date:04/26/2025 11:37:02 AM Interpretation: Performing Lab:[facility] [place], [address] [place] [address], Phone - [phone], Director - Blaise Notes/Report: HCV Ab Non Reactive Non Reactive Interpretation: Not infected with HCV unless early or acute infection is suspected (which may be delayed in an immunocompromised individual), or other evidence exists to indicate HCV infection. Comp. Metabolic Panel (14)-3 [id number] Reviewed date:04/26/2025 11:37:02 AM Interpretation: Performing Lab:[facility] [place], [address] [place] [address], Phone - [phone], Director - Blaise Notes/Report: Glucose 77 70-99 [...] IU/L ALT (SGPT) 22 0-32 IU/L LP+Non-HDL Cholesterol-10046 5 Reviewed date:04/26/2025 11:37:02 AM Interpretation: Performing Lab:[facility], [address] [facility], [place], Phone - [phone], Director - Blaise Notes/Report: Cholesterol, Total 175 100-199 mg/dL Triglycerides 125 0-149 mg/dL HDL Cholesterol 42 >39 mg/dL VLDL Cholesterol Bubba 22 5-40 mg/dL LDL Chol Calc (NIH) 111 0-99 mg/dL Non-HDL Cholesterol 133 0-129 mg/dL TSH reflex to [id number] Reviewed date:04/26/2025 11:37:02 AM Interpretation: Performing Lab:[facility], [address] [facility], [place], Phone - [phone], Director - Blaise Notes/Report: TSH 1.430 0.450-4.500 uIU/mL CR Spine Lumbar 2 or 3 Views Reviewed date:08/16/2025 04:12:08 PM Interpretation: Performing Lab: Notes/Report: MR Lumbar Reviewed date:10/11/2025 04:02:50 PM Interpretation: Performing Lab: Notes/Report: Original Report EXAM: MR LUMBAR SPINE WITHOUT CONTRAST INDICATION: Low back pain COMPARISON: None. TECHNIQUE: Multiplanar T1 and T2-weighted imaging of the lumbar spine. FINDINGS: The conus is in its normal position at the level of L1. There are Modic type I and type II reactive degenerative endplate changes present at L4-5. T12-L3: Shows no significant abnormalities. L3-4: Degenerative disc changes are present with disc desiccation. Broad-based disc bulging is present. There is a central radial tear of the annulus present. The central canal and neural foramen are patent. L4-5: Degenerative disc changes are present with disc desiccation. There is a broad-based central and left paracentral disc herniation present that compresses the left L5 nerve root within the left lateral recess. Mild facet osteoarthritic changes are present. There are small bilateral facet effusions present. The neural foramen are patent bilaterally. L5-S1: Degenerative disc changes are present with disc desiccation. There is a broad-based central and right paracentral disc protrusion present that touches both the right greater than left S1 nerve roots as they exit from the dural sac in a position that could irritate them. Mild facet osteoarthritic changes are present. The neural foramen are patent bilaterally. IMPRESSION: Spondylotic findings as described above that are most prominent at L4-5 and L5-S1. Read by: Jurgen Bridges M.D. Reviewed and Electronically Signed by: Jurgen Bridges M.D. XR Lumbar Reviewed date:08/10/2025 09:54:19 PM Interpretation: Performing Lab: Notes/Report: Original Report PROCEDURE: XR SPINE LUMBAR 2 or 3 views INDICATION: Low back pain. TECHNIQUE: Three views of the lumbar spine. COMPARISON: None Available. FINDINGS: The alignment is anatomic. There is straightening of lordosis. Vertebral body height is normal without compression deformity. There is mild disc space narrowing in the lower lumbar spine. Sacroiliac joints are unremarkable. IMPRESSION: No acute fracture or malalignment. Zachery Cabral DO Signed by DO Nghia Darling provided for [facility] Read by: ZACHERY CABRAL DO Reviewed and Electronically Signed by: ZACHERY CABRAL DO Reason For Referral Reason Can we refer to Francia SOMERS - any provider for eval for fibroids and thick endometrial lining faxed Diagnosis 1 Leiomyoma of uterus, unspecified (D25.9) Referral Organization [facility] Referring Provider First Name Velma Referring Provider Last Name Bryan Referring Provider Speciality Nurse Prac titioner Referred Provider Specialty Director Medicaid General Notes Asya ROSENBERG 02/15 04:09:27 PM >completed [facility] Referral form and faxed, Asya ROSENBERG 05/03/2025 08:29:55 AM >Patient booked with Dr James for today. Ins Referral completed. Referral Priority Routine Diagnosis 1 Radiculopathy, lumba r region (M54.16) Referral Organization [facility] Referring Provider First Name Velma Referring Provider Last Name Bryan Referring Provider Speciality Nurse Mojgan salinas Referred Provider Dharmesh Hernandez Referred Provider Specialty Neurosurgery General Notes Asya ROSENBERG 01/2025 05:08:59 PM >faxed, Asya ROSENBERG 11/08/2025 01:16:08 PM >Reference#: [id number] Referral Priority Routine Medications Medication SIG (Take, Route, Frequency, Duration) Notes Start Date End Date Status Zepbound 15 MG/0.5ML 0.5 mL Subcutaneous weekly; Duration: 30 days Active Azelastine HCl 137 MCG/SPRAY 2 puffs (1 spray in each nostril) Nasally Twice a day; Duration: 30 days 11/02/2025 Active Propranolol HCl 10 MG 1 tablet as needed for anxiety Orally every 12 hrs; Duration: 30 days 08/02/2025 Active Valtrex 1 GM 2 Tablets Orally Twi ce a day as needed; Duration: 1 days Active LORazepam 0.5 MG 1 tablet at as neede d for flying fear Orally Once a day; Duration: 7 days 04/25/2025 Not-Taking Immunizations Vaccine Route Administration Date Status Comme nts *Influenza-Flublok Unknown 08/30/2025 Administered *Tdap Unknown 03/29/2021 Administered [id number] Vaccine Unknown 07/26/2021 Administere d [id number] Vaccine Unknown 08/23/2021 Administere d Influenza-Afluria (IIV4) [...] year? Yes How often did you have a dri nk containing alcohol in the past year? Monthly or less (1 point) How many drinks did you have on a typical day when you were drinking in the past year? 1 or 2 drinks (0 point) How often did you have six o r more drinks on one occasion in the past year? Never (0 point) Points 1 Interpretation Negative Tobacco Control (Standard) Question Answer Notes Tobacco use: Current smoker How often do you smoke cigarettes? Every day How many cigarettes a day do you smoke? 6-10 Problems Problem Type SNOMED Code ICD Code Onset Dates Problem Status W/U Status Risk Notes Problem Vitamin D deficiency (05404983) Vitamin D deficiency, unspecified (E55.9) Active confirmed Problem Mixed hyperlipidemia (022892443) Mixed hyperlipidemia (E78.2) Active confirmed Problem Tobacco user (372511646) Nicotine dependence, cigarettes, uncomplicated (F17.210) Active confirmed Problem Major depression, single episode, in complete remission (18415590) Major depressive disorder, single episode, in full remission (F32.5) Active confirmed Problem Fear of flying (510907373) Fear of flying (F40.243) Active confirmed Problem Generalized anxiety disorder (12327559) Generalized anxiety disorder (F41.1) Active confirmed Problem Cramp in lower leg associated with rest (594266928) Sleep related leg cramps (G47.62) Active confirmed Problem Spinal stenosis of lumbar region (32779198) Spinal stenosis, lumbosacral region (M48.07) Active confirmed Problem Lumbar radiculopathy (895859328) Radiculopathy, lumbar region (M54.16) Active confirmed Problem Endometriosis of uterus (48412594) Endometriosis of uterus (N80.0) Active confirmed Problem Intermenstrual bleeding - irregular (54564828) Excessive and frequent menstruation with irregular cycle (N92.1) Active confirmed Problem Paresthesia (finding) (65416261) Paresthesia of skin (R20.2) Active confirmed Problem Premenstrual dysphoric disorder (338600) Premenstrual dysphoric disorder (F32.81) Active confirmed Problem Body mass index 30.00 to 34.99 (804800503509946) Body mass index [BMI] 33.0-33.9, adult (Z68.33) Active confirmed Vital Signs Heart Rate 86 /min 11/02/2025 Temperature 96.8 degrees Fahrenheit 11/02/2025 Blood pressure diastolic 66 mm Hg 11/02/2025 Oximetry 98 % 11/02/2025 Height 68 in 11/02/2025 Blood pressure systolic 112 mm Hg 11/02/2025 Weight 190.2 lbs 11/02/2025 BMI 28.92 kg/m2 11/02/2025 Encounters Encounter Location Date Provider Diagnosis Beata Terrell MD [address] [id number] 12/07/2024 Velma Adams Excessive and freque nt menstruation with irregular cycle N92.1 ; Major depressive disorder, single episode, in full remission F32.5 ; Generalized anxiety disorder F41.1 ; Endometriosis of uterus N80.0 and Mixed hyperlipidemia E78.2 Beata Terrell MD [address] [id number] 03/14/2025 Velma Adams Excessive and freque nt menstruation with irregular cycle N92.1 ; Major depressive disorder, single episode, in full remission F32.5 ; Generalized anxiety disorder F41.1 ; Endometriosis of uterus N80.0 ; Mixed hyperlipidemia E78.2 ; Body mass index [BMI] 28.0-28.9, adult Z68.28 and Drug induced constipation K59.03 Beata Terrell MD [address] [id number] 04/25/2025 Velma Adams Encounter for genera l [...] and behavioral disorders Z13.39 Beata Terrell MD [address] [id number] 08/02/2025 Velma Joyae Major depressive disorder, single episode, in full remission F32.5 ; Generalized anxiety disorder F41.1 ; Excessive and frequent menstruation with irregular cycle N92.1 ; Endometriosis of uterus N80.0 ; Body mass index [BMI] 28.0-28.9, adult Z68.28 and Radiculopathy, lumbar region M54.16 Beata Terrell MD [address] [id number] 11/02/2025 Velma Bryan Major depressive disorder, single episode, in full remission F32.5 ; Generalized anxiety disorder F41.1 ; Postnasal drip R09.82 ; Body mass index [BMI] 28.0-28.9, adult Z68.28 ; Excessive and frequent menstruation with irregular cycle N92.1 ; Nicotine dependence, cigarettes, uncomplicated F17.210 and Radiculopathy, lumbar region M54.16 Beata Terrell MD [address] [id number] 11/22/2024 Velma Terrell MD [address] [id number] 12/08/2024 Velma Terrell MD [address] [id number] 02/28/2025 Velma Adams Leiomyoma of uterus, unspecified D25.9 Beata Terrell MD [address] [id number] 03/21/2025 Velma Terrell MD [address] [id number] 04/26/2025 Velma Terrell MD [address] [id number] 04/26/2025 Velma Terrell MD [address] [id number] 05/02/2025 Velma Terrell MD [address] [id number] 05/19/2025 Velma Adams Body mass index [BMI ] 28.0-28.9, adult Z68.28 Beata Terrell MD [address] [id number] 05/30/2025 Velma Bryan Terrell MD [address] [id number] 08/10/2025 Velma Adams Radiculopathy, lumba r region M54.16 Beata Terrell MD [address] [id number] 10/11/2025 Velma Adams Radiculopathy, lumba r region M54.16 and Spinal stenosis, lumbosacral region M48.07 Beata Terrell MD [address] [id number] 11/02/2025 Velma Adams Beata Terrell MD [address] [id number] 12/09/2024 Velma Bryan Terrell MD [address] [id number] 02/01/2025 Velma Joyasamanta Terrell MD [address] [id number] 03/15/2025 Velma Terrell MD [address] [id number] 03/19/2025 Velma Adams Beata Terrell MD [address] [id number] 03/21/2025 Velma Terrell MD [address] [id number] 03/22/2025 Velma Adams Beata Terrell MD [address] [id number] 04/17/2025 Velma Adams Body mass index [BMI ] 28.0-28.9, adult Z68.28 Beata Terrell MD [address] [id number] 06/21/2025 Velma Adams Body mass index [BMI ] 28.0-28.9, adult Z68.28 Assessments Encounter Date Diagnosis (ICD Code) Assessment Notes Treatment Notes Treatment Clinical Notes Section Notes 12/07/2024 Major depressive disorder, single episode, in [...] a referral to the endometriosis specialist in [place] and patient agreeable to move forward with [...] patient states she has not heard from [facility]. Provided patient with this contact information as [...] index [BMI] 28.0-28.9, adult (ICD-10 - Z68.28) 08/02/2025 Major depressive disorder, single episode, in full remission (ICD-10 - F32.5) Patient feels as though her depressive symptoms have improved but she still continues to have increased anxious episodes. See plan below regarding treatment for anxiety 08/02/2025 Generalized anxiety disorder (ICD-10 - F41.1) Patient continues to have increased anxious episodes and overthinking. She admits to not starting Prozac as she feels as though she is fearful of taking this medication as a friend of hers committed suicide while on Prozac. Due to this fear, Prozac is not a good choice for patient. To allow patient to have more autonomy on taking medication for high anxiety episodes, will start patient on propranolol 1 tablet 1-2 times a day to further manage her anxiety. Patient is scheduled to be seen in October and we will reassess mood at that time and determine if there are any additional medications to manage her symptoms. Patient also continue working with her therapist weekly to assist in managing her anxiety with coping strategies and methods 08/10/2025 Radiculopathy, lumbar region (ICD-10 - M54.16) 10/11/2025 Spinal stenosis, lumbosacral region (ICD-10 - M48.07) 10/11/2025 Radiculopathy, lumbar region (ICD-10 - M54.16) 11/02/2025 Major depressive disorder, single episode, in full remission (ICD-10 - F32.5) Stable at present time and patient to continue working on coping strategies and working with her therapist for management of depressive symptoms 11/02/2025 Generalized anxiety disorder (ICD-10 - F41.1) Stable at present time and patient to continue using propranolol as needed for increased anxious episodes. Patient also continue working on coping strategies and seeing her therapist regularly for additional mental health support 08/02/2025 Excessive and frequent menstruation with irregular cycle (ICD-10 - N92.1) Patient continues to track her cycles and does states she is continuing to have a regular menstrual cycles that are between every 4 weeks. Patient did have previous elevated AMH levels which would correlate with a high suspicion for PCOS. Patient also underwent a transvaginal ultrasound and MRI with findings of a thicker endometrial lining and endometrial enhancements. Patient is followed by Dr. James and is scheduled for a biopsy on September 16 of the endometrial lining 04/25/2025 Major depressive disorder, single episode, in full remission (ICD-10 - F32.5) Stable and patient feels as though her depressive symptoms have improved and are well-controlled at this time 11/02/2025 Postnasal drip (ICD-10 - R09.82) Patient shares concerns of an acute cough. She states that she has been seen by urgent care who treated her for bronchitis but patient states her cough still persists. There was postnasal drip noted on exam and suspect that there is a seasonal allergy and that is causing her symptoms. Encouraged patient to begin Zyrtec or Dorene daily as well as begin prescribed azelastine nasal spray for improvement of symptoms 03/14/2025 Generalized anxiety disorder (ICD-10 - F41.1) [...] improve her mental health and anxiety 12/07/2024 Endometriosis of uterus (ICD-10 - N80.0) [...] endometriosis. She is pending an appointment with [facility] for further evaluation. Discussed with patient that if [facility] is not able to assist in any further diagnosis or management, could consider referral to an endometriosis specialist either in [place] or [place] 11/02/2025 Body mass index [BMI] 28.0-28.9, adult (ICD-10 - Z68.28) Discussed with patient her Zepbound use as well as her lack of weight loss since last visit. Patient has not gained but due to her plateau and weight loss will increase her Zepbound to 15 mg weekly to further improve her BMI and reach her weight loss goals. Plan will be for follow-up in 3 months 04/25/2025 Generalized anxiety disorder (ICD-10 - F41.1) [...] any negative side effects with starting Prozac 08/02/2025 Endometriosis of uterus (ICD-10 - N80.0) See plan above.Patient is scheduled for endometrial biopsy on September [address] James 08/02/2025 Body mass index [BMI] 28.0-28.9, adult (ICD-10 - Z68.28) Patient continues to work on weight loss with not only diet and exercise but also with Zepbound. Due to patient's minimal weight loss since last visit we will increase her Zepbound to 12.5 mg weekly. Plan will be for follow-up in 3 months 04/25/2025 Excessive and frequent menstruation with irregular [...] evaluation and consultation given this MRI finding 11/02/2025 Excessive and frequent menstruation with irregular cycle (ICD-10 - N92.1) Patient to continue tracking her cycles and she states she is pending a visit with gynecology in February. Patient did have previous elevated AMH levels which does correlate with a high suspicion of underlying PCOS, causing her irregular and heavy menstrual cycles. Patient previoulsy underwent a transvaginal ultrasound and MRI with findings of a thicker endometrial lining and endometrial enhancements 03/14/2025 Mixed hyperlipidemia (ICD-10 - E78.2) Patient [...] further evaluation to assess current cardiovascular risk 12/07/2024 Mixed hyperlipidemia (ICD-10 - E78.2) Patient [...] and determine next steps given these findings 11/02/2025 Nicotine dependence, cigarettes, uncomplicated (ICD-10 - F17.210) Follow-up patient continues to smoke but states that she is smoking less than her last visit. Patient has used nicotine patches in the past but returned back to smoking. Patient aware to contact the office should she want any additional courts to help her quit smoking 08/02/2025 Radiculopathy, lumbar region (ICD-10 - M54.16) Patient shares concerns of increased lower back pain with radiating pain down her left leg on occasion. During today's visit there was findings of positive left leg raises. Discussed with patient that this could be related to piriformis syndrome. Would like to obtain a lumbar spine x-ray for initial evaluation. Also provided patient with physical therapy order so she can begin working with a physical therapist to see if symptoms resolve or improve with PT. Reviewed with patient that there could be some nerve irritation or tight piriformis muscle which is causing compression of the sciatic nerve. Would like patient to trial a short course of prednisone to see if symptoms improve. If symptoms do not improve and x-ray is without significant findings could consider adding a lumbar MRI for further evaluation and to rule out nerve involvement 04/25/2025 Premenstrual dysphoric disorder (ICD-10 - F32.81) [...] any negative side effects since starting Prozac 11/02/2025 Radiculopathy, lumbar region (ICD-10 - M54.16) Patient is scheduled to see Dr. Tabares to discuss potential injection for intermittent back pain, although pt denies any current back pain symptoms at today's visit 03/14/2025 Drug induced constipation (ICD-10 - K59.03) [...] Next Appt Details Provider Name:Velma Adams , 02/02/2026 08:30:00 AM, [address] [place] [address], [phone], Provider Name:Velma Adams , 05/01/2026 08:30:00 AM, [address] [place] [address], [address], [phone], Insurance Providers Payer Name Payer Address Payer Phone Subscriber Number Group Number Insured Name Patient Relationship to Insured Coverage Start Date Coverage End Date [facility] [address] [place] [address] [phone] [id number] Eden Charles Self - patient is the insured Medical (General) History Medical History History ICD Code HPV - colposcopy (2010) - normal paps si nce procedure HSV Surgical History Surgery Date(Month/Year) Leep procedure LP (for severe headache) Migraines (as a teenager) Hospitalization History Reason Date(Month/Year)
[2025-11-14 09:03] VITALS: BMI 28.1
== END 2025-11-14 10:24 | disposition home or self-care (01) ==
LOC: HO.HNS 08:49
PROVIDERS: PCP Nurse Practitioner Family; Referring Provider Nurse Practitioner Family; Visit Provider Physician Assistant
DX: M51.369 Other intervertebral disc degeneration, lumbar region without mention of lumbar back pain or lower extremity pain (principal)
CPT/HCPCS: 99204